=== PATIENT | female | born 1970 | race Caucasian/White ===

== ENCOUNTER 2019-08-26 23:50 | Emergency (ER) | payer OTHER, SELFPAY ==
[~2019-08-26] VITALS: Ht 167.6 cm; Wt 53.2 kg
[2019-08-26 23:51] VITALS: BP 148/96
[2019-08-27 00:56] LABS: BASO # 0.1 10^3/uL (0.0-0.2); BASO % 0.7 % (0.0-1.0); EOS # 0.1 10^3/uL (0.0-0.5); EOS % 1.3 % (0.0-3.0); HEMATOCRIT 39.6 % (36.0-47.0); HEMOGLOBIN 12.1 g/dl (12.0-15.5); LYMPH # 1.8 10^3/uL (1.5-5.0); LYMPH % 18.6 % (24.0-44.0); MEAN CORPUSCULAR HEMOGLOBIN 24.9 pg (27.0-33.0); MEAN CORPUSCULAR HGB CONC 30.6 g/dl (32.0-36.5); MEAN CORPUSCULAR VOLUME 81.6 fl (80.0-96.0); MONO % 9.9 % (0.0-5.0); NEUTROPHILS # 6.8 10^3/uL (1.5-8.5); NEUTROPHILS % 69.2 % (36.0-66.0); PLATELET COUNT, AUTOMATED 304 10^3/uL (150-450); RED BLOOD COUNT 4.85 10^6/uL (4.00-5.40); WHITE BLOOD COUNT 9.8 10^3/uL (4.0-10.0)
[2019-08-27 01:22] LABS: ALBUMIN 3.8 GM/DL (3.2-5.2); ALT/SGPT 51 U/L (12-78); BILIRUBIN,DIRECT 0.2 MG/DL (0.0-0.2); BILIRUBIN,TOTAL 0.8 MG/DL (0.2-1.0); BLOOD UREA NITROGEN 10 MG/DL (7-18); CALCIUM LEVEL 9.2 MG/DL (8.5-10.1); CARBON DIOXIDE LEVEL 30 MEQ/L (21-32); CHLORIDE LEVEL 101 MEQ/L (98-107); CREATININE FOR GFR 0.72 MG/DL (0.55-1.30); GLOMERULAR FILTRATION RATE > 60.0 (>58); GLUCOSE, FASTING 84 MG/DL (70-100); LIPASE 98 U/L (73-393); POTASSIUM SERUM 3.7 MEQ/L (3.5-5.1); SODIUM LEVEL 139 MEQ/L (136-145); TOTAL PROTEIN 7.1 GM/DL (6.4-8.2)
== END 2019-08-27 03:05 | disposition left against medical advice (07) ==
LOC: M ED 23:50
DX: Z53.29 Procedure and treatment not carried out because of patient's decision for other reasons (principal)

== ENCOUNTER 2020-10-24 11:10 | Emergency (ER) | payer OTHER, SELFPAY ==
[~2020-10-24] VITALS: Ht 167.6 cm; Wt 56.8 kg
[2020-10-24 11:14] VITALS: BP 145/65
--- OUTSIDE RECORDS SUMMARY | 2020-10-24 11:28 | CCD ---
Author Author [facility] Organization [facility] Address Unknown Phone Unavailable Care Team Providers Care Customer Contact Specialist Name Role Phone José Miguel ROMERO MD Unavailable Unavailable José Miguel ROMERO MD Unavailable Unavailable José Miguel ROMERO MD Unavailable Unavailable José Miguel ROMERO MD Unavailable Unavailable José Miguel ROMERO MD Unavailable Unavailable José Miguel ROMERO MD Unavailable Unavailable José Miguel ROMERO MD Unavailable Unavailable José Miguel ROMERO MD Unavailable Unavailable José Miguel ROMERO MD Unavailable Unavailable José Miguel ROMERO MD Unavailable Unavailable José Miguel ROMERO MD Unavailable Unavailable José Miguel ROMERO MD Unavailable Unavailable José Miguel ROMERO MD Unavailable Unavailable TURRIN, CORY Unavailable Unavailable TURRIN, CORY Unavailable Unavailable TURRIN, CORY Unavailable Unavailable TURRIN, CORY Unavailable Unavailable Frank, M María PA-C Unavailable Unavailable Frank, M María PA-C Unavailable Unavailable Frank, M María PA-C Unavailable Unavailable Frank, M María PA-C Unavailable Unavailable Frank, M María PA-C Unavailable Unavailable Frank, M María PA-C Unavailable Unavailable Frank, M María PA-C Unavailable Unavailable Frank, M María PA-C Unavailable Unavailable Frank, M María PA-C Unavailable Unavailable Frank, M María PA-C Unavailable Unavailable Frank, M María PA-C Unavailable Unavailable Frank, M María PA-C Unavailable Unavailable Frank, M María PA-C Unavailable Unavailable Frank, M María PA-C Unavailable Unavailable Frank, M María PA-C Unavailable Unavailable Frank, M María PA-C Unavailable Unavailable Farnk, M María PA-C Unavailable Unavailable Frank, M María PA-C Unavailable Unavailable Frank, M María PA-C Unavailable Unavailable Frank, M María PA-C Unavailable Unavailable Frank, M María PA-C Unavailable Unavailable Frank, M María PA-C Unavailable Unavailable Frank, M María PA-C Unavailable Unavailable Frank, M María PA-C Unavailable Unavailable Frank, M María PA-C Unavailable Unavailable Frank, M María PA-C Unavailable Unavailable Frank, M María PA-C Unavailable Unavailable Frank, M María PA-C Unavailable Unavailable Frank, M María PA-C Unavailable Unavailable Frank, M María PA-C Unavailable Unavailable Frank, M María PA-C Unavailable Unavailable Frank, M María PA-C Unavailable Unavailable Frank, M María PA-C Unavailable Unavailable NO, PCP Unavailable Unavailable Re-disclosure Warning The records that you are about to access may contain information from federally-assisted alcohol or drug abuse programs. If such information is present, then the following federally mandated warning applies: This information has been disclosed to you from records protected by federal confidentiality rules (42 CFR part 2). The federal rules prohibit you from making any further disclosure of this information unless further disclosure is expressly permitted by the written consent of the person to whom it pertains or as otherwise permitted by 42 CFR part 2. A general authorization for the release of medical or other information is NOT sufficient for this purpose. The Federal rules restrict any use of the information to criminally investigate or prosecute any alcohol or drug abuse patient.The records that you are about to access may contain highly sensitive health information, the redisclosure of which is protected by Article 27-F of the [facility] Public Health law. If you continue you may have access to information: Regarding HIV / AIDS; Provided by facilities licensed or operated by the [facility] Office of Mental Health; or Provided by the [facility] Office for People With Developmental Disabilities. If such information is present, then the following [facility] mandated warning applies: This information has been disclosed to you from confidential records which are protected by state law. State law prohibits you from making any further disclosure of this information without the specific written consent of the person to whom it pertains, or as otherwise permitted by law. Any unauthorized further disclosure in violation of state law may result in a fine or correction sentence or both. A general authorization for the release of medical or other information is NOT sufficient authorization for further disc losure. Allergies and Adverse Reactions Type Description Substance Reaction Status Data Source(s ) BRANDNAME PENICILLIN PENICILLIN [facility] Food allergy SOY SOY [facility] Encounters Encounter Providers Location Date Indications Data Source(s ) Outpatient Attender: SALAZAR ROMERO MDConsultant: María troncoso PA-C 03/05/2020 11:35:44 AM EDT - 03/06/2020 08:34:00 AM [facility] Patient discharged. Outpatient Attender: SALAZAR MERINOonsultant: PCP NO 03/03/2020 01:27:18 PM EDT - 03/08/2020 08:00:00 AM [facility] Patient discharged. Outpatient Attender: SALAZAR MERINOonsultant: PCP NO 11/15/2019 09:03:00 AM EST - 11/15/2019 09:03:00 AM [facility] l Outpatient Attender: SALAZAR MERINOonsultant: PCP NO 09/11/2019 01:39:00 PM EST - 09/11/2019 01:39:00 PM [facility] l Outpatient Attender: SALAZAR ROMERO MDAttender: GENTRY HODGEConsultant: PCP NO 08/27/2019 04:11:00 PM EST - 08/30/2019 12:45:00 PM [facility] Patient discharged. Medications Medication Brand Name Start Date Product Form Dose Route Admi nistrative Instructions Pharmacy Instructions Status Indications Reaction Description Data Source(s) 40 mg 08/30/2019 12:00:00 AM EST capsule,delayed release (DR/EC) 60 TAKE ONE CAPSULE BY MOUTH TWICE A DAY TAKE ONE CAPSULE BY MOUTH TWICE A DAY SOLD: 11/21/2019 [facility] 40 mg 08/30/2019 12:00:00 AM EST capsule,delayed release (DR/EC) 60 TAKE ONE CAPSULE BY MOUTH TWICE A DAY TAKE ONE CAPSULE BY MOUTH TWICE A DAY SOLD: 08/30/2019 [facility] Insurance Providers Payer name Policy type / Coverage type Policy ID Covered alliance party ID Covered alliance party's relationship to cronin Policy Cronin Plan Information SELF PAY ONLY [id number] SP [id number] [employer] COMMUNITY PLAN XIX [id number] MEDICAID -O/[id number] MEDICAID [facility] [id number] [id number] [facility] COMMUNTY PLAN [id number] UNHC COMMUNITY PLAN MCDHMO [id number] SP [id number] HMO BLUE [id number] SP [id number] [employer] BCBS P [id number] S [id number] [employer] P [id number] S [id number] Problems, Conditions, and Diagnoses Code Display Name Description Problem Type Effective Dates Data Source(s) R99 Ill-defined and unknown cause of mortali ty Ill-defined and unknown cause of mortality Diagnosis 03/08/2020 08:00:00 AM EDT [facility] K8020 Calculus of gallbladder without cholecys titis without obstruction Calculus of gallbladder without cholecystitis without obstruction Diagnosis 11/15/2019 09:03:00 AM [facility] K257 Chronic gastric ulcer without hemorrhage or perforation Chronic gastric ulcer without hemorrhage or perforation Diagnosis 11/15/2019 09:03:00 AM [facility] K3189 Other diseases of stomach and duodenum O ther diseases of stomach and duodenum Diagnosis 09/11/2019 01:39:00 PM [facility] K2950 Unspecified chronic gastritis without bl eeding Unspecified chronic gastritis without bleeding Diagnosis 08/27/2019 04:11:00 PM [facility] A048 Other specified bacterial intestinal inf ections Other specified bacterial intestinal infections Diagnosis 08/27/2019 04:11:00 PM [facility] E46 Unspecified protein-calorie malnutrition Unspecified protein-calorie malnutrition Diagnosis 08/27/2019 04:11:00 PM [facility] S35682 Nicotine dependence, cigarettes, uncompl icated Nicotine dependence, cigarettes, uncomplicated Diagnosis 08/27/2019 04:11:00 PM [facility] 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 Adult hypert rophic pyloric stenosis Diagnosis 08/27/2019 04:11:00 PM [facility] K279 Peptic ulcer, site unspecifi ed, unspecified as acute or chronic, without hemorrhage or perforation Peptic ulcer, site unspecified, unspecif ied as acute or chronic, without hemorrhage or perforation Diagnosis 08/27/20 04:11:00 PM [facility] Results ID Date Data Source [id number] 08/27/2019 04:11:00 PM [facility] 1 OrderSheet [facility] Emergency Department [address] [place] [address] Phone #: ext- [phone] 08/27/2019 15:57 Patient: JOVI ADDISON Sex: F : 1970 Age: 49yWEIGHT:53.0 kg (S) HEIGHT:66 inches (S) BMI:18.9ALLERGIES: Penicillins, SoyCHIEF COMPLAINT: abdominal painDIAGNOSIS: CholecystitisLAB ORDERSOrder Description Priority Entered Acknowledged InitialedCBC w Diff STAT 17:38 08/27/2019 17:39 Cory Colon RN, M.D.;CMP STAT 17:38 08/27/2019 17:39 Cory Colon RN, M.D.;Lipase STAT 17:38 08/27/2019 17:39 Cory Colon RN, M.D.;Urinalysis (Clean STAT 17:38 08/27/2019 Ack'd: 19:10 20:29 Omi Vergara) Cory oHdge Jennifer R.N. M.D.; Maris EnglandTSH STAT 17:46 08/27/2019 18:03 Cory Colon RN, M.D.;DIAGNOSTIC STUDY ORDERSOrder Description Priority Entered Acknowledged InitialedCT Abd PE L W/ IV STAT 17:39 08/27/2019 18:03 DorisContrast Only Cory Hodge RN(Oxygen?(No)) Emerald;(IV?(Yes)) Reason for Study: epigastric, ruq pain x 1 month w 15 lbs wt lossUS Gall Bladder STAT 18:52 08/27/2019 Ack'd: 19:10 19:16 Madhuri(Oxygen?(No)) Cory Hodge Hagenston RN M.D.; Maris England Reason for Study: Nausea w Vomiting, RUQ PainMEDICATION/IV/DRIP/FLUID ORDERS 2 OrderSheet [facility] Emergency Department [address] [place] [address] Phone #: ext- [phone] 08/27/2019 15:57 Patient: JOVI ADDISON Sex: F : 1970 Age: 49yOrder Description Priority Entered Acknowledged InitialedNS IV 1000 mL 17:38 08/27/2019 18:02 DorisBolus: : Bolus 1000 Cory Hodge RNmL (X1) MEstuardoDEstuardo;Zofran 4 mg IVP X 1 17:38 08/27/2019 18:00 Dorisdose: 4 mg (NOW Cory Hodge RNx1) MRaissa;Zantac IVPB 50 mg 17:38 08/27/2019 18:0 3 Doriswith Dextrose Cory Hodge RNIntravenous 50 mL M.DEstuardo;(D5W)Zofran 4 mg IVP X 1 22:24 08/27/2019 Ack'd: 22:44 22:50 Jai,dose: 4 mg (NOW Cory Hodge Jennifer R.N.x1) Emerald; Maris EnglandcefOXitin 23:52 08/27/2019 Ack'd: 23:57 00:29 08/28/2019(2gm/100mL) IVPB Cory Hodge McCormick,2000 mg with Emerald; Maris Pollock R.N.DextroseIntravenous 100 mL(D5W) Reason for ordering with alerts: Benefits outweigh risks -- 23:52 08/27/2019 Cory Hodge M.D.LR IV : 150 mL/hr 23:55 08/27/2019 Ack'd: 23:57 01:49 08/28/2019 Cory Hodge McCormick, M.D.; Maris Pollock R.N.HYDROmorphone 23:55 08/27/2019 Ack'd: 23:57 00:28 08/28/2019IVP 1 mg (Cory Yee McCormick, ALERT M.D.; Maris Pollock R.N.MEDICATION)HYDROmorphone 01:54 08/28/2019 Ack'd: 01:54 01:55 JaiIVP 1 mg (Maris Albarado Jennifer R.N.ALERT R.NEstuardo; Verbal order Maris EnglandMEDICATION) per; Cory Hodge M.D.GENERAL ORDERSOrder Description Priority Entered Acknowledged InitialedNPO 17:38 08/27/2019 18:03 Cory Colon RN, M.D.;Saline Lock 17:38 08/27/2019 18:03 Madhuri 3 OrderSheet [facility] Emergency Department [address] [place] [address] Phone #: ext- [phone] 08/27/2019 15:57 [id number] Sex[facility] F : 1970 Age: 49y Cory Hodge RN, M.D.;Consult - General 23:55 08/27/2019 Ack'd: 23:57 23:57 Vergara,Cory Goyal Jennifer R.N. M.D.; Maris England[Electronically signed by Maris Vergara R.N. (02: 019)][Electronically signed by Cory Hodge M.D. (02:12 08/28/2019)][Electronically locked by Maris Vergara R.N. (02:08/28/2019)] Name Value Range Interpretation Code Description Data Rachel rce(s) Supporting Document(s) ID Date Data Source [id number] 08/27/2019 04:11:00 PM EST [facility] 1 Medication Reconciliation Report [facility] Emergency Department [address] [place] [address] Phone #: ext- [phone] 08/27/2019 15:57 Patient: JOVI ADDISON Sex: F : 1970 Age: 49yWeight: 53.0 kgHeight/Length: 66 in.BMI: 18.9ALLERGIES: Penicillins, SoyThe patient's Home Medications are listed below:NONE.The source(s) of the original Home Medication information:patientThe following Medications were given to the patient in the Emergency Department:Zofran [IVP] IVP 4 mg, administered: 08/27/2019 5:53:00 PMIV NS w/ bolus IV Fluids bolus 1000 mL over 1 hour(s), then 1000 mL/hr, administered: 08/27/2019 5:54:00PMZantac [IVPB] IVPB bolus 0, then 50 mg 100 mL/hr, administered: 08/27/2019 5:55:00 PMZofran [IVP] IVP 4 mg, administered: 08/27/2019 10:45:00 PMHydromorphone [IVP] IVP 1 mg, administered: 08/28/2019 12:05:00 AMCEFOXITIN (2GM/100ML) [IVPB] IVPB bolus 0, then 2 gm 100 mL/hr, administered: 08/28/2019 12:08:00AMLR [IV] IV Fluids bolus 0, then 150 mL/hr, administered: 08/28/2019 1:49:00 AMHydromorphone [IVP] IVP 1 mg, administered: 08/28/2019 1:51:00 AMThe following Medications were prescribed to the patient:None. Name Value Range Interpretation Code Description Data Rachel rce(s) Supporting Document(s) ID Date Data Source [id number] 08/27/2019 04:11:00 PM EST [facility] 1 Medication Administration Record [facility] Emergency Department [address] [place] [address] Phone #: ext- [phone] 08/27/2019 15:57 Patient: JOVI ADDISON Sex: F : 1970 Age: 49yWeight: 53.0 kgHeight/Length: 66 inBMI: 18.9ALLERGIES: Soy, Penicillins Date/Time Medication Administered Medication OrderedStart IV NS W/ BOLUS NS IV 1000 mL Bolus: : Bolus 390935:[id number] 08/27/2019 Dose: IV Fluids mL (X1)Madhuri Caballero RN Rate: 1000 mL/hr over 1 hour(s)---- Bolus: 1000 mL over 1 hour(s)Stop Dispensed: 1000 mL bag19:15 08/27/2019 Site: #1 left forearmMaris Vergara R.N.Given ZOFRAN [IVP] (ONDANSETRON HCL) Zofran 4 mg IVP X 1 dose: 4 mg17:53 08/27/2019 Dose: 4 mg IVP (NOW x1)Madhuri Caballero RN Site: #1 left forearmStart ZANTAC [IVPB] (RANITIDINE HCL IN Zantac IVPB 50 mg with Dydmjszh61:55 08/27/2019 NACL) Intravenous 50 mL (D5W)Madhuri Caballero RN Dose: 50 mg IVPB---- Rate: 100 mL/hr over 30 minute(s)Stop Dispensed: 50 mL bag18:25 08/27/2019 Site: #1 left fo rearmDoris OSEAS CaballeroGiven ZOFRAN [IVP] (ONDANSETRON HCL) Zofran 4 mg IVP X 1 dose: 4 mg22:45 08/27/2019 Dose: 4 mg IVP (NOW x1)Maris Vergara R.N. Site: #1 left forearmStart CEFOXITIN (2GM/100ML) [IVPB] cefOXitin (2gm/100mL) IVPB [id number]:08 08/28/2019 (CEFOXITIN SODIUM) mg with Dextrose Intravenous 100Maris Gonzalez R.N. Dose: 2 gm IVPB mL (D5W)---- Rate: 100 mL/hrStop Dispensed: 100 mL bag01:48 08/28/2019 Site: #1 left forearmMaris Gonzalez R.N.Start LR [IV] LR IV : 150 mL/hr01:49 08/28/2019 Dose: IV FluidsMaris Vergara R.N. Rate: 150 mL/hr---- Dispensed: 1000 mL bagContinued Upon Admission Site: #1 left nejkkmi59:07 08/28/2019 Maris Gonzalez R.N.Given HYDROMORPHONE [IVP] HYDROmorphone IVP 1 mg (HIGH00:05 08/28/2019 Dose: 1 mg IVP ALERT MEDICATION)Maris Vergara R.N. Site: #1 left forearmGiven HYDROMORPHONE [IVP] HYDROmorphone IVP 1 mg (HIGH01:51 08/28/2019 Dose: 1 mg IVP ALERT MEDICATION)Maris Vergara R.N. Site: #1 left forearm Name Value Range Interpretation Code Description Data Rachel rce(s) Supporting Document(s) ID Date Data Source [id number] 08/27/2019 04:11:00 PM EST [facility] 1 General Instructions [facility] Emergency Department [address] [place] [address] Phone #: fvs- [phone] 08/27/2019 15:57 Patient: JOVI ADDISON Sex: F : 1970 Age: 49yAcute cholecystitis with cholelithiasis. No obstruction, choledocholithiasis or pancreatitis.(Electronically signed by Cory Hodge M.D. 08/28/2019 02:12) Name Value Range Interpretation Code Description Data Rachel rce(s) Supporting Document(s) ID Date Data Source [id number] 08/27/2019 04:11:00 PM EST [facility] 1 Clinical Report - Nurses [facility] Emergency Department [address] [place] [address] Phone #: ext- [phone] 08/27/2019 15:57 Patient: JOVI ADDISON Sex: F : 1970 Age: 49yTRIAGEArrived by private vehicle. Historian: patient. Accompanied by spouse.Triage time: 16:00 08/27/2019. Acuity: LEVEL 3.Chief Complaint: ABDOMINAL PAIN and VOMITING.Alert. No acute distress.Onset. (1 month ago). ( Pt states she has been losing a lot of weight for the past 8-10 months, this hasbeen waxing and waning. Pt states over the past month she has been having abd pain and vomiting. Ptwent to [facility] night but left AMA due to overcrowding.). The patient has had nausea and abdominalpain. The pain is described as located in the epigastrium and central area of the abdomen. The patienthas had vomiting (twice today).Treatment LINE HAUL DRIVER:None.SEPSIS SCREEN: NEGATIVE. Negative (no infection suspected/documented). (16:05 08/27/2019).--16:05 08/27/19 Maris Brewer R.N.16:00 08/27/19. BP: 143/95. HR: 88. RR: 18. O2 saturation: 97%. Temp: 97.8 F. --16:05 08/27/19Maris Brewer R.N.16:05 08/27/19. Pain level now: 06/21. --16:05 08/27/19 Maris Brewer R.N.Weight: 53 kg stated. Height/Length: 66 inches Per Patient. BMI: 18.9. --16:00 08/27/19 Maris Brewer R.N.MedicationsNone. --16:03 08/27/19 Maris Brewer R.N.AllergiesPenicillins.(hives) --16:03 08/27/19 Maris Brewer R.N.Soy. --16:03 08/27/19 Maris Brewer R.N.PROBLEMS:no known problems.Medication/allergy information source: the patient. --16:05 08/27/19 Maris Brewer R.N.ADDITIONAL SURGERIES: (X2). --16:04 08/27/19 Maris Brewer R.N. 2 Clinical Report - Nurses [facility] Emergency Department [address] [place] [address] Phone #: ext- [phone] 08/27/2019 15:57 Patient: JOVI ADDISON Sex: F : 1970 Age: 49y History PAST MEDICAL HX: Immunizations: up-to-date. Last normal menstrual period was 1 week ago. SOCIAL HX: Current every day heavy tobacco smoker (cigarette)- less than 1 pack per day. No alcohol use or drug use. No recent travel. No known contact with a sick individual. The patient was offered HIV candido ting but declined. Patient education was provided. The patient was offered hepatitis C testing but declined. Patient education was provided. The patient has not traveled outside the [place] Infectious disease exposure: No infectious disease exposure. Patient is not a known carrier of tuberculosis, hepatitis, HIV, MRSA or VRE. Patient is not a known carrier of CRE. SELF HARM ASSESSMENT: Self harm assessment was performed. The patient answered "no" to the question(s) "Have you recently felt down, depressed, or hopeless?", "Do you have thoughts of harming or killing yourself?", "Do you have a plan for harming or killing yourself?", "Have you recently had thoughts about harming or killing others?", "Do you have any dangerous items in your possession?", "Have you noticed less interest or pleasure in doing things?", "Are you here because you tried to hurt yourself?" and "Have you ever tried to hurt yourself before today?". ABUSE ASSESSMENT: No report of abuse. NUTRITIONAL RISK ASSESSMENT: The nutritional risk assessment revealed no deficiencies. FUNCTIONAL ASSESSMENT: Functional assessment: no impairments noted. LEARNING NEEDS ASSESSMENT: The learning needs assessment revealed no barriers. FALL RISK ASSESSMENT: Fall risk assessment completed. No risk factors identified. SKIN INTEGRITY ASSESSMENT: Skin integrity risk assessment completed. No skin integrity risk identified. --16:05 08/27/19 Maris Brewer R.N. Interventions Identification band on patient. --16:05 08/27/19 Maris Brewer R.N. To treatment room. --17:31 08/27/19 Maris Brewer R.N.PHYSICAL VDCGAYVUNQ40:42 08/27/19. Ambulatory to room.GENERAL / NEURO / PSYCH: Alert. Oriented X 4. Appears in no acute distress.HEENT: Mucous membranes are pink.RESPIRATORY: Respirations not labored.GI / : Abdomen soft. Abdominal tenderness in the upper abdomen. Bowel sounds within normallimits.SKIN: Skin is warm and dry. --19:19 12/16/19 Madhuri Caballero RN. 3 Clinical Report - Nurses [facility] Emergency Department [address] [place] [address] Phone #: ext- [phone] 08/27/2019 15:57 Patient: JOVI ADDISON Sex: F : 1970 Age: 49yNURSING PROGRESS NOTESThe patient is calm and resting quietly. --17:18 08/27/19 Maris Brewer R.N. 17:42 08/27/19. Two patient identifiers checked. Bed placed in lowest position. Brakes of bed on. Patient ready for evaluation- ED physician notified. --:08/27/19 Madhuri Caballero RN 17:53 08/27/2019 Site #1 started via IV in the left forearm with an 20g angiocath, with aseptic technique and good blood return; one attempt. Saline lock flushed with 10 mL saline. --18:00 08/27/19 Madhuri Caballero RN 17:53 08/27/2019 Zofran (Ondansetron HCl) IVP 4 mg given over 1 minute(s) via site #1. Allergies verified and confirmed 5 rights. IV patency established. IV site checked: no pain, redness, or swelling. IV flushed thoroughly pre- and post-medication administration. IVP given by RN. Information reviewed with patient including reason for taking this medication, signs of allergic reaction and precautions. Verbalizes understanding. --18:00 08/27/19 Madhuri Caballero RN 17:54 08/27/2019 Started bag #1 1000 mL IV Fluids IV NS w/ bolus; bolus of 1000 mL over 1 hour(s) then at 1000 mL/hr over 1 hour(s) via site #1 via IV pump. Allergies verified and confirmed 5 rights. IV patency established. IV site checked: no pain, redness, or swelling. IV flushed thoroughly pre- and post-medication administration. Information reviewed with patient including reason for taking this medication, signs of allergic reaction and precautions. Verbalizes understanding. Completed per protocol. --18:02 08/27/19 Madhuri Caballero RN 17:55 08/27/2019 Started 50 mg of Zantac (raNITIdine HCl in NaCl) IVPB in bag #1 50 mL; at 100 mL/hr over 30 minute(s) via site #1. via IV pump. Allergies verified and confirmed 5 rights. IV patency established. IV site checked: no pain, redness, or swelling. IV flushed thoroughly pre- and post-medication administration. Information reviewed with patient including reason for taking this medication, signs of allergic reaction and precautions. Verbalizes understanding. Completed per protocol. --18:03 08/27/19 Madhuri Caballero RN 18:08 08/27/2019 Zofran IVP Response: no adverse reaction symptoms have improved the patient feels better. --19:17 08/27/19 Madhuri Caballero RN 18:15 08/27/19. Reassessment after medication administered. Pain still present but improving. Nausea gone now. Reassessment after fluids administered. She is calm and resting quietly. --19:21 08/27/19 Madhuri Caballero RN 18:25 08/27/2019 Zantac IVPB via IV site #1 Discontinued: completed. Total amount infused: 50 mL. --19:17 08/27/19 Madhuri Caballero RN 18:28 08/27/19. Patient transported to CT by wheelchair with data entry technician. --19:22 08/27/19 Madhuri Caballero RN 18:37 08/27/19. Patient returned from CT by wheelchair with data entry technician. --19:22 08/27/19 4 Clinical Report - Nurses [facility] Emergency Department [address] [place] [address] Phone #: ext- [phone] 08/27/2019 15:57 Patient: JOVI ADDISON Sex: F : 1970 Age: 49yDoris OSEAS Caballero19:15 08/27/19. Care transferred and report given (Maris Vergara RN). --19:24 08/27/19 OSEAS Hussein19:27 08/27/19. BP: 142/81. MAP: 101. HR: 55. RR: 18. O2 saturation: 98% on room air. Temp: 97.3 F(oral). Pain level now: 04/21. --19:27 08/27/19 Maris Vergara R.N.20:29 08/27/19. Patient transported to sonogram by wheelchair with tech. --20:29 08/27/19 Maris Vergara R.N.21:15 08/27/19. Patient returned from sonogram by wheelchair with tech. --21:16 08/27/19 Maris Vergara R.N.The patient is calm and resting quietly. ( Pt sleeping intermittently.).GI / : The patient reports nausea is still present and worsening (MD AWARE). --22:23 08/27/19Maris Brewer R.N.22:23 08/27/19. BP: 141/82. MAP: 101. HR: 56. RR: 16. O2 saturation: 99% on room air. Temp: 98.5 F(tympanic). --22:23 08/27/19 Maris Brewer R.N.19:15 08/27/2019 IV Fluids IV NS w/ bolus via IV site #1 Discontinued: bag #1 infused. Total amountinfused: 1000 mL. IV patency est ablished. IV site checked: no pain, redness, or swelling. IV flushedthoroughly. --01:56 08/28/19 Maris Vergara R.N.22:45 08/27/2019 Zofran (Ondansetron HCl) IVP 4 mg given over 2 minute(s) via site #1. Allergies verifiedand confirmed 5 rights. IV patency established. IV site checked: no pain, redness, or swelling. IV flushedthoroughly pre- and post-medication administration. IVP given by RN. Information reviewed with patientincluding reason for taking this medication, signs of allergic reaction and precautions. Verbalizesunderstanding. --22:50 08/27/19 Maris Vergara R.N.22:50 08/27/19. Reassurance given to the patient. The patient is calm and resting quietly. --22: Maris Vergara R.N.00:05 08/28/2019 Hydromorphone IVP 1 mg given over 2 minute(s) via site #1. Allergies verified andconfirmed 5 rights. IV patency established. IV site checked: no pain, redness, or swelling. IV flushedthoroughly pre- and post-medication administration. IVP given by RN. Information reviewed with patientincluding reason for taking this medication, signs of allergic reaction, precautions and sedative warning.Verbalizes understanding. --00:28 08/28/19 Maris Vergara R.N.00:08 08/28/2019 Started 2 gm of CEFOXITIN (2GM/100ML) (cefOXitin Sodium) IVPB in bag #1 100 mL;at 100 mL/hr via site #1. via IV pump. Allergies verified and confirmed 5 rights. IV patency established. IVsite checke d: no pain, redness, or swelling. IV flushed thoroughly pre- and post-medication administration.Information reviewed with patient including reason for taking this medication, signs of allergic reaction and 5 Clinical Report - Nurses [facility] Emergency Department [address] [place] [address] Phone #: ext- [phone] 08/27/2019 15:57 Patient: JOVI ADDISON Sex: F : 1970 Age: 49y precautions. Verbalizes understanding. --00:29 08/28/19 Maris Vergara R.N. 00:18 08/28/19. Reassurance given to the patient. The patient is calm and resting quietly. Two patient identifiers checked. Patient ID band checked for patient name and birthdate: patient confirmed. Side rails up x 1. Bed placed in lowest position. Brakes of bed on. --00:30 08/28/19 Maris Vergara R.N. 01:00 08/28/19. The patient is resting quietly. Call light placed in reach of patient. Side rails up x 1. Bed placed in lowest position. Brakes of bed on. --01:57 08/28/19 Maris Vergara R.N. 01:45 08/28/19. BP: 143/74. MAP: 97. HR: 57. RR: 18. O2 saturation: 98% on room air. Temp: 97.2 F (oral). Pain level now: 04/21. --01:59 08/28/19 Maris Vergara R.NEstuardo 01:45 08/28/19. GI / : The patient reports abdominal pain is still present and worsening (04/21 provider made aware, new orders rec'd). --01:59 08/28/19 Maris Vergara R.N. 01:48 08/28/2019 CEFOXITIN (2GM/100ML) IVPB via IV site #1 Discontinued: bag #1 infused. Total amount infused: 120 mL. IV patency established. IV site checked: no pain, redness, or swelling. IV flushed thoroughly. --01:48 08/28/19 Maris Vergara R.N. 01:49 08/28/2019 Started bag #1 1000 mL IV Fluids LR; at 150 mL/hr via site #1 via IV pump. Allergies verified and confirmed 5 rights. IV patency established. IV site checked: no pain, redness, or swelling. IV flushed thoroughly pre- and post-medication administration. Information reviewed with patient including reason for taking this medication, signs of allergic reaction and precautions. Verbalizes understanding. --01:49 08/28/19 Maris Vergara R.N. 01:51 08/28/2019 Hydromorphone IVP 1 mg given over 2 minute(s) via site #1. Allergies verified and confirmed 5 rights. IV patency established. IV site checked: no pain, redness, or swelling. IV flushed thoroughly pre- and post-medication administration. IVP given by RN. Information reviewed with patient including reason for taking this medication, signs of allergic reaction, precautions and sedative warning. Verbalizes understanding. --01:55 08/28/19 Marsi Vergara R.N. 02:07 08/28/2019 Site #[address] upon admission; patent, no pain and no signs of infection or infiltration. --02:08 08/28/19 Maris Vergara R.N. 02:08/28/2019 IV Fluids LR via IV site #1 Continued: upon admission at the rate of 150 mL/hr. 950 mL remaining bag #1. IV patency established. IV site checked: no pain, redness, or swelling. IV flushed thoroughly. --02:08 08/28/19 Maris Vergara R.N.DISPOSITION / DISCHARGE 02:01 08/28/19. Report was given to a nurse via a phone call. Report included patient's care, condition, vital signs, labs, medications and IV's. All questions were answered. Report was acknowledged and care was transferred. (Nikky FAROOQ). --02:06 08/28/19 Maris Vergara R.N. 6 Clinical Report - Nurses [facility] Emergency Department [address] [place] [address] Phone #: ext- [phone] 08/27/2019 15:57 Patient: JOVI ADDISON Sex: F : 1970 Age: 49y 02:07 08/28/19. Departure time: 02:07 08/28/2019. Admitted to the Acute Inpatient Unit. Transported via stretcher by nurse with IV. Patient's personal items; items were transported with the patient. --02:07 08/28/19 Maris Vergara R.N. 01:45 08/28/19. BP: 143/74. MAP: 97. HR: 57. RR: 18. O2 saturation: 98% on room air. Temp: 97.2 F (oral). Pain level now: 04/21. --02:07 08/28/19 Maris Vergara R.N.Locked/Released at 08/28/2019 02:08 by Maris Vergara R.N. Name Value Range Interpretation Code Description Data Rachel rce(s) Supporting Document(s) ID Date Data Source [id number] 0001 08/27/2019 04:11:00 PM [facility] 1 Clinical Report - Physicians/Mid Levels [facility] Emergency Department [address] [place] [address] Phone #: ext- [phone] 08/27/2019 15:57 [id number] Sex[facility] F : 1970 Age: 49y Time Seen: 17:32 08/27/2019; initial patient contact. Arrived- By private vehicle. Historian- patient. Disposition decision: 23:53 08/27/2019.HISTORY OF PRESENT ILLNESS Chief Complaint: ABDOMINAL PAIN. This started 8 months ago, mild, getting worse in last month and is still present and worsening. (in last month). It has been constant. It is described as "pain" and it is described as located in the right upper quadrant and epigastric area. At its maximum, severity described as severe. When seen in the E.D., severity described as moderate. Modifying factors- worsened by food. Not relieved by anything. The patient has had nausea and loss of appetite. She has had vomiting (daily). She has had diarrhea (daily). Similar symptoms previously. None. Recent medical care: Not recently seen/assessed.REVIEW OF SYSTEMSNo constipation, alexandrea ck stools, hematemesis, difficulty with urination or pain with urination. No urinaryfrequency, bloody stools, fever, headache or sore throat. No blurred vision, chest pain, difficulty breathing,cough or joint pain. No skin rash, chills or back pain. The patient has not had weight loss. weight lossof 15 lbs /2 weeks. All other systems reviewed and are negative.PAST HISTORYSee nurses notes. Problems: no known problems. Additional Surgeries: . Medications: None. Allergies: Penicillins.(hives) Soy.SOCIAL HISTORYHeavy tobacco smoker- less than 1 pack per day. No alcohol use or drug use.ADDITIONAL NOTESThe nursing notes have been reviewed with agreement regarding the chief complaint, HPI, ROS, PMH and 2 Clinical Report - Physicians/Mid Levels [facility] Emergency Department [address] [place] [address] Phone #: ext- [phone] 08/27/2019 15:57 Patient: JOVI ADDISON Sex: F : 1970 Age: 49y patient medications and allergies.PHYSICAL EXAMVital Signs: 08/27/2019 16:05 Pain level now: 06/21.08/27/2019 16:00 BP: 143/95. MAP: 111. HR: 88. RR: 18. O2 saturation: 97%. Temp: 97.8 F. Have beenreviewed. Oxygen saturation normal.Appearance: Alert. Oriented X3. Patient in mild distress. Distress appears due to pain. (looks like shelost weight).Eyes: Pupils equal, round and reactive to light. Eyes normal inspection.ENT: Ears normal. Nose normal. Pharynx normal.Neck: Normal inspection. Neck supple.CVS: Normal heart rate and rhythm. Heart sounds normal. Pulses normal.Respiratory: No respiratory distress. Painless inspiration. Breath sounds normal. Chest nontender.Abdomen: Soft. Severe tenderness in the right upper quadrant and epigastric area with guardingp resent. Positive Smith's sign. No rebound tenderness. No organomegaly. No mass. Femoral pulsesequal.Back: Normal inspection.Skin: Skin warm and dry. Normal skin color. No rash. Normal skin turgor.Extremities: Extremities exhibit normal ROM. No lower extremity edema.Neuro: Oriented X 3. No motor deficit. No sensory deficit. Reflexes normal.LABS, X-RAYS, AND EKGAbdominal CT: REPORT SUBMISSION DATE: Aug 27, 2019 8:20:48 PM EST NAME: JOVI ADDISON STUDY INITIATED: Aug 27, 2019 6:13:15 PM EST STUDY RECEIVED: Aug 27, 2019 7:02:48 PM EST GENDER: F MODALITY TYPE: CT : 72 DESCRIPTION: CT ABD PELVIS W/ IV ONLY INSTITUTION: [facility] ORDERING PHYSICIAN: Cory Hodge PATIENT HISTORY: Epigastric, ruq pain x 1 month with 15 lb weight loss (Hx) / SAGITTAL (DICOM Hx) CT Abdomen/Pelvis History: Epigastric, ruq pain x 1 month with 15 lb weight loss (Hx) / SAGITTAL (DICOM Hx) Technique: CT ABD PELVIS W/ IV ONLY Dose length product (mGy-cm): Not provided 3 Clinical Report - Physicians/[facility] Emergency Department [address] [place] [address] Phone #: ext- [phone] 08/27/2019 15:57 Patient: JOVI ADDISON Sex: F : 1970 Age: 49yReformations: NoneContrast: With; Isovue 370 75 ml [id number] Exp 06/03Comparison:No comparison study provided.Findings:Moderate fluid distended stomach mild thickening of the pylorus. Advise correlation with symptoms andendoscopy if warranted to evaluate for possible gastroparesis, gastr itis/ulcer, mass or other etiologies.The appendix is partially visualized and visualized portions appear normal.Appendix tip not visualized and cannot be commented on.image 37 series 22.The large and small bowel loops appear normal.There is no evidence for bowel obstruction, inflammation or pneumatosis.There is a left sided 1.3 cm ovarian cyst. Consider ultrasound follow-up if warranted.Normal uterus and nonvisualized right ovary.Minimal free fluid in pelvis.Heterogeneous appearance of the fundus of the gallbladder likely represents gallstones less likely mass.Advise ultrasound follow-up.There are n ormal appearing liver, pancreas and bilateral adrenal glands.Normal spleen.Normal kidneysPartially decompressed bladder noted which limits evaluation. No distinct bladder stone identified.7 mm left renal cyst.Normal right kidney and bladder.ImpressionModerate fluid distended stomach mild thickening of the pylorus. Advise correlation with symptoms andendoscopy if warranted to evaluate for possible gastroparesis, gastritis/ulcer, mass or other etiologies.Heterogeneous appearance of the fundus of the gallbladder likely represents gallstones less likely mass.Advise ultrasound follow-up.Normal left renal cyst.There is a left sided 1.3 cm ovarian cyst. Consider ultrasound follow-up if warranted.Nonvisualized right ovary.Minimal free fluid in pelvis.Electronically signed on Aug 27, 2019 8:20:48 PM EST by:Landon Blum, [employer]. Abdominal CT performed with IV contrast. The study wasinterpreted by the radiologist. 4 Clinical Report - Physicians/Mid Levels [facility] Emergency Department [address] [place] [address] Phone #: ext- [phone] 08/27/2019 15:57 Patient: JOVI ADDISON Sex: F : 1970 Age: 49yAbdominal Sonogram: (REPORT SUBMISSION DATE: Aug 27, 2019 10:54:23 PM ESTNAME: JOVI ADDISON STUDY INITIATED:Aug 27, 2019 8:30:47 PM ESTMRN: [id number] STUDY RECEIVED:Aug 27, 2019 9:09:48 PM ESTGENDER: F MODALITY TYPE:US\\SRDOB: [birth year] DESCRIPTION: US GALLBLADDERINSTITUTION: [facility] ORDERING PHYSICIAN: Cory Frederick #: [id number] HISTORY:US RUQ (Gallbladder)History:US GALLBLADDER, RUQ PAIN, WITH VOMITING AND WEIGHT LOSS (Hx)Technique:US GALLBLADDERComparison:No comparison study available.Findings:Normal liver.Pancreas is suboptimally imaged.Wall echo shadow gallbladder complex.Gallbladder wall measures 3mmCommon biliary duct measures 2.9 mmNormal right kidney. No renal mass or hydronephrosis or calculi.Aorta in the visualized portions are grossly normal.IVC is patent.ImpressionMultiple gallstones obscuring posterior wall. Top normal gallbladder wall thickness.Electronically signed on Aug 27, 2019 10:54:23 PM EST by:Landon Blum, [place]). Study included the gallbladder. The study was interpreted bythe radiologist. 5 Clinical Report - Physicians/Mid Levels [facility] Emergency Department [address] [place] [address] Phone #: ext- [phone] 08/27/2019 15:57 Patient: JOVI ADDISON Sex: F : 1970 Age: 49yLaboratory Tests: Laboratory tests have been ordered, with results reviewed and considered in themedical decision making process.US Gall Bladder: (YA: 08/27/2019 18:52) ( MsgRcvd 08/27/2019 22:55) Final results [place] [address] ---------NAME--------- NUMBER SEX AGE ADMIT DISC. XRAY# F/C TYPE CYN Keller [id number] F 49 08/27/19879835 X6B E/R DATE OF : 1970 M/R# [id number] #: [id number] VT-14 LOCATION: EMERGENCY DEPT TRANSCRIBED: 08/27/19 22:54 IF US GALLBLADDER [id number] COMPLETED:08/27/19 22:04 ADB [id number] Reason(s): Nausea w Vomiting RUQ Pain PHYSICIAN: AYESHA DARRELL R A D I O L O G Y R E P O R T US RUQ (Gallbladder) History: US GALLBLADDER, RUQ PAIN, WITH VOMITING AND WEIGHT LOSS (Hx) Technique: US GALLBLADDER Comparison: No comparison study available. Findings: Normal liver. Pancreas is suboptimally imaged. Wall echo shadow gallbladder complex. Gallbladder wall measures 3mm Common biliary duct measures 2.9 mm Normal right kidney. No renal mass or hydronephrosis or calculi. Aorta in the visualized portions are grossly normal. IVC is patent. IMPRESSIONS: Multiple gallstones obscuring posterior wall. Top normal gallbladder wall thickness. Electronically Signed By: Aneclmo Hernandez M.D. , Radiologist Date/Time: 08/27/19 22:54TSH: (YA: 08/27/2019 17:40) ( MsgRcvd 08/27/2019 18:26) Final results Test Result Flag Units (Reference) TSH 0.91 uIU/mL (0.47 - 5.01)CT Abd PEL W/ IV Contrast Only: (YA: 08/27/2019 17:39) ( MsgRcvd 08/27/2019 20:21) Finalresults Exam CT ABD //T// PELVIS W/ [place] [address] ---------NAME--------- NUMBER SEX AGE ADMIT DISC. XRAY# F/C TYPE CYN Keller [id number] F 49 08/27/19 [id number] X6B E/R 6 Clinical Report - Physicians/Mid Levels [facility] Emergency Department [address] [place] [address] Phone #: ext- [phone] 08/27/2019 15:57 Patient: JOVI ADDISON Sex: F : 1970 Age: 49y DATE OF : 1970 M/R# [id number] #: [id number] VT-14 LOCATION: EMERGENCY DEPT TRANSCRIBED: 08/27/19 20:[address] ABD //T// PELVIS W/ IV ONLY [id number] COMPLETED:08/27/19 18:28 [facility] [address] Reason(s): epigastric, ruq pain x 1 month w 15 lbs wt loss PHYSICIAN: AYESHA RAMÍREZ == R A D I O L O G Y R E P O R T PATIENT HISTORY:SAGITTAL (DICOM Hx)CT Abdomen/PelvisHistory:Epigastric, ruq pain x 1 month with 15 lb weight loss (Hx) / SAGITTAL (DICOM Hx)Technique:CT ABD //T// PELVIS W/ IV ONLYDose length product (mGy-cm): Not providedReformations: NoneContrast: With; Isovue 370 75 ml [id number] Exp 06/03Comparison:No comparison study provided.Findings:Moderate fluid distended stomach mild thickening of the pylorus. Advisecorrelation with symptoms and endoscopy if warranted to evaluate for possiblegastroparesis, gastritis/ulcer, mass or other etiologies.The appendix is partially visualized and visualized portions appear normal.Appendix tip not visualized and cannot be commented on.image 37 series 22.The large and small bowel loops appear normal.There is no evidence for bowel obstruction, inflammation or pneumatosis.There is a left sided 1.3 cm ovarian cyst. Consider ultrasound follow-up ifwarranted.Normal uterus and nonvisualized right ovary.Minimal free fluid in pelvis.Heterogeneous appearance of the fundus of the gallbladder likely representsgallstones less likely mass. Advise ultrasound follow-up.There are normal appearing liver, pancreas and bilateral adrenal glands.Normal spleen.Normal kidneysPartially decompressed bladder noted which limits evaluation. No distinctbladder stone identified.7 mm left renal cyst.Normal right kidney and bladder.IMPRESSIONS:Moderate fluid distended stomach mild thickening of the pylorus. Advisecorrelation with symptoms and endoscopy if warranted to evaluate for possiblegastroparesis, gastritis/ulcer, mass or other etiologies.Heterogeneous appearance of the fundus of the gallbladder likely representsgallstones less likely mass. Advise ultrasound follow-up.Normal left renal cyst.There is a left sided 1.3 cm ovarian cyst. Consider ultrasound follow-up ifwarranted.Nonvisualized right ovary.Minimal free fluid in pelvis.While performing the above CT examination, radiation dose reduction wasaccomplished utilizing automated exposure control, adjusting of the mA and kVbased on the patient's body size and/or the use of imperative reconstructivetechniques. 7 Clinical Report - Physicians/Mid Levels [facility] Emergency Department [address] [place] [address] Phone #: ext- [phone] 08/27/2019 15:57 Patient: JOVI ADDISON Sex: F : 1970 Age: 49y Electronically Signed By: Ancelmo Hernandez M.D. , Radiologist Date/Time: 08/27/19 20:20CBC w Diff: (YA: 08/27/2019 17:40) ( MsgRcvd 08/27/2019 17:54) Final results Test Result Flag Units (Reference) CBC W/AUTOMATED DIFF COMPLETE BLOOD COUNT WBC 10.0 10/uL (4.2 - 11.0) RBC 5.09 1 0/uL (4.20 - 5.40) HEMOGLOBIN 12.8 g/dL (12.0 - 16.0) HEMATOCRIT 40.5 % (37.0 - 47.0) MCV 79.6 L fL (81.0 - 101) MCH 25.1 L pg (27.0 - 34.0) MCHC 31.6 g/dL (31.0 - 36.0) RDW 14.8 H % (11.5 - 14.5) PLATELETS 325 10/uL (150 - 450) MPV 10.3 fL (7.4 - 10.4) NEUT 71.2 % (37.0 - 80.0) LYMPH 19.1 L % (25.0 - 40.0) MONO 8.3 H % (3.0 - 8.0) EOS 0.5 % (0.0 - 7.0) BASO 0.6 % (0.0 - 2.5) %IG 0.3 H % (0.0 - 0.0) %NRBC 0.0 % (0.0 - 0.0) #NEUT 7.13 H 10/uL (2.00 - 6.90) #LYMPH 1.91 10/uL (0.60 - 3.40) #MONO 0.83 10/uL (0.00 - 0.90) #EOS 0.05 10/uL (0.00 - 0.70) #BASO 0.06 10/uL (0.00 - 0.20) #IG 0.03 10/uL (0.00 - 0.10) #NRBC 0.00 10/uL (0.00 - 0.00) MANUAL DIFF NOT INDICATED RBC MORPH NOT INDICATEDCMP: (YA: 08/27/2019 17:40) ( MsgRcvd 08/27/2019 19:16) Correction to results Test Result Flag Units (Reference) COMPREHENSIVE METABOLIC PANEL COMPREHENSIVE METABOLIC PANEL SODIUM 138 mEq/L (134 - 153) POTASSIUM 3.9 mEq/L (3.6 - 5.0) CHLORIDE 94 L mEq/L (98 - 107) CO2 24 MEQ/L (22 - 30) GLUCOSE 91 MG/DL (65 - 110) BUN 15 MG/DL (7 - 21) CREATININE 0.6 L MG/DL (0.7 - 1.5) BUN/CREAT 25 (8 - 27) TOTAL PROTEIN 7.6 G/DL (6.3 - 8.2) ALBUMIN 4.8 G/DL (3.9 - 5.0) GLOBULIN 2.8 GM/DL (2.4 - 3.2) A/G RATIO 1.7 (0.8 - 2.0) CALCIUM 10.0 MG/DL (8.4 - 10.2) TOTAL BILI <0.7 MG/DL (0.2 - 1.3) ALKALINE PHOS 91 U/L (38 - 126) SGOT/AST 37 U/L (5 - 40) SGPT/ALT 48 U/L (7 - 56) ANION GAP 20.0 H mmol/L (8.0 - 16.0) AGE 49 yrs NON-AA GFR >60 mL/min AFR AMER GFR >60 mL/min Male GFR Interprentation 20-49 yrs >60 mL/min Adynqd31-96 yrs >56 mL/min Normal 60-69 yrs >49 mL/min Normal 70-79yrs>42 mL/min Normal 80 and above >35 mL/min Normal Female GFR 8 Clinical Report - Physicians/Mid Levels [facility] Emergency Department [address] [place] [address] Phone #: ext- [phone] 08/27/2019 15:57 Patient: JOVI ADDISON Sex: F : 1970 Age: 49y Interpretation 20-39 yrs >60 mL/min Normal 40-49 yrs >58 mL/min Normal 50-59 yrs >51 mL/min Normal 60-69 yrs >45 mL/min Normal 70-79 yrs >39 mL/min Normal 80 and above >32 mL/min Normal Lipase: (YA: 08/27/2019 17:40) ( [facility] [place] 08/27/[place] 18:13) Final results Test Result Flag Units (Reference) LIPASE 22 U/L (13 - 60) Urinalysis: (YA: 08/27/2019 19:54) ( [facility] 08/27/2019 20:21) Final results Test Result Flag Units (Reference) URINALYSIS URINALYSIS SOURCE R COLOR yellow (NORMAL: Yello CLARITY clear (NORMAL: Clear SPEC GRAVITY 1.015 (1.001 - 1.030 pH 5 (5 - 9) GLUCOSE NORM (NORMAL: Negat BILIRUBIN NEG (NORMAL: Negat KETONE 150 A (NORMAL: Negat PROTEIN 30 (NORMAL: Negat NITRITE NEG (NORMAL: Negat BLOOD 50 A (NORMAL: Negat LEUK EST NEG (NORMAL: Negat UROBILINOGEN NOR (less than 1.0 MICROSCOPIC See Below WBC None Seen (NORMAL: NONE RBC 0 - 1 (NORMAL: NONE EPITHELIAL None Seen (NORMAL: NONE BACTERIA None Seen (NORMAL: NONE.PROGRESS AND PROCEDURESCourse of Care: 20:50 08/27/19. workup in as well as CTAP w IV results, all reviewed, possible pyloriculcer vs mass, and maybe gallstones, pt at GB US right now 23:33 08/27/19. GB US result in showing multiple gallstones w top nml GB wall thickness; pt still in pain, RUQ; probable cholecystitis; will call Dr. Romero, surgeon, for admission. Critical care performed (60 minutes). Time is exclusive of separately billable procedures. Time includes: direct patient care, patient reassessment, coordination of patient care, interpretation of data (laboratory data), medical consultation and documentation of patient care- see progress notes. Patient and spouse counseled in person regarding the patient's stable condition, test results, diagnosis and need for admission. Patient and spouse agrees with plan of care. Disposition: Condition: good and stable. Admit decision based on need for IV therapy, hydration, antibiotics and medications, pain control, stabilization of condition and surgery.CLINICAL IMPRESSION Acute cholecystitis with cholelithiasis. No obstruction, choledocholithiasis or pancreatitis. 9 Clinical Report - Physicians/Mid Levels [facility] Emergency Department [address] [place] [address] Phone #: ext- [phone] 08/27/2019 15:57 Patient: JOVI ADDISON Sex: F : 1970 Age: 49y(Electronically signed by Cory Hodge M.D. 08/28/2019 02:12) Name Value Range Interpretation Code Description Data Rachel rce(s) Supporting Document(s) ID Date Data Source [id number] 08/30/2019 10:07:00 [place] [address] PHONE: [phone] FAX: [phone] Name .................. : CYN Keller Acct Number.................. : [id number] ROOM. ................. : 100-1 MR Number ................... : [id number] Stay type ............. : O/P Discharge Date......... ... : Admit Date ......... : 08/27/19 Admit Phys .................... : MAGDALENO Date of ....... : 1970 Family Phys ................... : NO PCP Phone .................. : [phone] Age ................................ : 49 Film# .................. .:[id number] Sex ................................. : F Unsigned transcriptions are preliminary reports and do not represent a medical or legal document GI UPPER WITH KUB [id number] COMPLETE:08/29/19 14:58 [place] [id number] (REASON FOR ABDOMEN: PYLORIC STENOSIS SINGLE CO NTRAST GI SERIES: COMPARISON: Previous CT scan from 08/27/19. INDICATION: Pyloric stenosis. FINDINGS: KUB demonstrates a large amount of material in the patient's stomach. The visualized bowel gas pattern is nonspecific. The osseous structures how mild degenerative changes. Following administration of gas crystals and barium, the esophageal mucosa appears unremarkable. No evidence of a stricture formation is identified. There is no gastroesophageal reflux, however a small to moderate hiatal hernia is noted. The stomach is grossly distended with food material. There is marked irregularity of the pyloric region with suspected underlying ulceration. The pyloric channel is markedly narrowed with a transverse diameter measuring approximately 1-2 mm. The proximal duodenum does appear prominent and may be mildly dilated. Repeat examination to ensure resolution of these findings is recommended. IMPRESSION: The stomach is grossly distended with persistent food material despite the patient's last meal being greater than 12 hours ago. There is marked irregularity of the pyloric region of the stomach and underlying ulceration is suspected. The pyloric channel is markedly narrowed, measuring approximately 1-2 mm in transverse diameter. Small to moderate hiatal hernia. Follow up to ensure resolution of these findings is recommended. 32 images were obtained and 1 minute 6 seconds of fluoroscopy was utilized. Page 1 of [address] [place] [address] PHONE: [phone] FAX: [phone] Name .................. : CYN Keller Acct Number.................. : [id number] ROOM. ................. : 100-1 MR Number ................... : [id number] Stay type ............. : O/P Discharge Date......... ... : Admit Date ......... : 08/27/19 Admit Phys .................... : MAGDALENO Date of ....... : 1970 Family Phys ................... : NO PCP Phone .................. : [phone] Age ................................ : 49 Film# .................. .:[id number] Sex ................................. : F Unsigned transcriptions are preliminary reports and do not represent a medical or legal document GI UPPER WITH KUB [id number] COMPLETE:08/29/19 14:58 SRG [id number] (REASON FOR ABDOMEN: PYLORIC STENOSIS Findings were discussed with Dr. Romero at the time of the completion of the examination. Examination dictated by HONORIO Bateman. Examination was reviewed with Logan Evans MD, radiologist at the time of this dictation. Electronically Reviewed and Signed By Logan Evans MD , 08/30/19 10:07, MRA Transcribe Initials: DZ , Transcribe Date: 08/29/19 16:03, Dictation Date: Copy for: EMERGENCY DEPT via modem Copy for: 710 MED REC Page 2 of 2 Name Value Range Interpretation Code Description Data Rachel rce(s) Supporting Document(s) ID Date Data Source [id number] 08/27/2019 10:54:[address] [facility] [address] [place] [address] ---------NAME--------- NUMBER SEX AGE ADMIT DISC. XRAY# F/C TYPE CYN ESPANA A [id number] F 49 08/27/19 [id number] X6B E/R DATE OF : 1970 M/R# [id number] #: [id number] VT-14 LOCATION: EMERGENCY DEPT TRANSCRIBED: 08/27/19 22:54 IF US GALLBLADDER [id number] COMPLETED:08/27/19 22:04 ADB 27688 Reason(s): Nausea w Vomiting RUQ Pain PHYSICIAN: AYESHA JESUS C R A D I O L O G Y R E P O R T ========US RUQ (Gallbladder)History:US GALLBLADDER, RUQ PAIN, WITH VOMITING AND WEIGHT LOSS (Hx)Technique:US GALLBLADDERComparison:No comparison study available.Findings:Normal liver.Pancreas is suboptimally imaged.Wall echo shadow gallbladder complex.Gallbladder wall measures 3mmCommon biliary duct measures 2.9 mmNormal right kidney. No renal mass or hydronephrosis or calculi.Aorta in the visualized portions are grossly normal.IVC is patent.IMPRESSIONS:Multiple gallstones obscuring posterior wall. Top normal gallbladder wallthickness.Electronically Signed By:Ancelmo Hernandez M.D. , RadiologistDate/Time: 08/27/19 22:54 Name Value Range Interpretation Code Description Data Rachel rce(s) Supporting Document(s) ID Date Data Source [id number] 08/27/2019 08:20:[address] [address] ---------NAME--------- NUMBER SEX AGE ADMIT DISC. XRAY# F/C TYPE CYN Keller [id number] F 49 08/27/19487268 X6B E/R DATE OF : 1970 M/R# [id number] #: [id number] VT-14 LOCATION: EMERGENCY DEPT TRANSCRIBED: 08/27/19 20:[address] ABD //T// PELVIS W/ IV ONLY [id number] COMPLETED:08/27/19 18:28 [facility] [id number] Reason(s): epigastric, ruq pain x 1 month w 15 lbs wt loss PHYSICIAN: AYESHA DARRELL == R A D I O L O G Y R E P O R T PATIENT HISTORY:SAGITTAL (DICOM Hx)CT Abdomen/PelvisHistory:Epigastric, ruq pain x 1 month with 15 lb weight loss (Hx) / SAGITTAL (DICOM Hx)Technique:CT ABD //T// PELVIS W/ IV ONLYDose length product (mGy-cm): Not providedReformations: NoneContrast: With; Isovue 370 75 ml [id number] Exp 06/03Comparison:No comparison study provided.Findings:Moderate fluid distended stomach mild thickening of the pylorus. Advisecorrelation with symptoms and endoscopy if warranted to evaluate for possiblegastroparesis, gastritis/ulcer, mass or other etiologies.The appendix is partially visualized and visualized portions appear normal.Appendix tip not visualized and cannot be commented on.image 37 series 22.The large and small bowel loops appear normal.There is no evidence for bowel obstruction, inflammation or pneumatosis.There is a left sided 1.3 cm ovarian cyst. Consider ultrasound follow-up ifwarranted.Normal uterus and nonvisualized right ovary.Minimal free fluid in pelvis.Heterogeneous appearance of the fundus of the gallbladder likely representsgallstones less likely mass. Advise ultrasound follow-up.There are normal appearing liver, pancreas and bilateral adrenal glands.Normal spleen.Normal kidneysPartially decompressed bladder noted which limits evaluation. No distinctbladder stone identified.7 mm left renal cyst.Normal right kidney and bladder.IMPRESSIONS:Moderate fluid distended stomach mild thickening of the pylorus. Advisecorrelation with symptoms and endoscopy if warranted to evaluate for possiblegastroparesis, gastritis/ulcer, mass or other etiologies.Heterogeneous appearance of the fundus of the gallbladder likely representsgallstones less likely mass. Advise ultrasound follow-up.Normal left renal cyst.There is a left sided 1.3 cm ovarian cyst. Consider ultrasound follow-up ifwarranted.Nonvisualized right ovary.Minimal free fluid in pelvis.While performing the above CT examination, radiation dose reduction wasaccomplished utilizing automated exposure control, adjusting of the mA and kVbased on the patient's body size and/or the use of imperative reconstructivetechniques.Electronically Signed By:Ancelmo Hernandez M.D. , RadiologistDate/Time: 08/27/19 20:20 Name Value Range Interpretation Code Description Data Rachel rce(s) Supporting Document(s) ID Date Data Source [id number] 08/27/2019 08:21:00 PM [facility] Name Value Range Interpretation Code Description Data Rachel rce(s) Supporting Document(s) [facility] yellow NORMAL: Yellow [facility] CLARITY clear NORMAL: Clear [facility] Specific gravity of Urine by Test strip 1.015 1.001 - 1.030 [facility] pH 5 5 - 9 [facility] Glucose [Mass/volume] in Urine by Test strip NORM NORMAL: Negat [facility] Bilirubin.total [Presence] in Urine by Test strip NEG NORMAL: Negative [facility] Ketones [Presence] in Urine by Test strip 150 NORMAL: Negative [facility] Protein [Mass/volume] in Urine by Test strip 30 NORMAL: Negat [facility] Nitrite [Presence] in Urine by Test strip NEG NORMAL: Negative [facility] BLOOD 50 NORMAL: Negative [facility] Leukocyte esterase [Presence] in Urine by Test strip NEG IRASEMA L: Negative [facility] Urobilinogen [Mass/volume] in Urine by Test strip NOR less hi n 1.0 mg/dL [facility] MICROSCOPIC See Below [facility] ital WBC None Seen NORMAL: NONE SEEN [facility] Erythrocytes [#/volume] in Urine by Test strip 0 - 1 NORMAL: NON E SEEN [facility] EPITHELIAL None Seen NORMAL: NONE SEEN [facility] Bacteria [Presence] in Urine sediment by Light microscopy No ne Seen NORMAL: NONE SEEN [facility] ID Date Data Source [id number] 08/27/2019 07:16:00 PM EST [facility] Name Value Range Interpretation Code Description Data Rachel rce(s) Supporting Document(s) COMPREHENSIVE METABOLIC PANEL [facility] COMPREHENSIVE METABOLIC PANEL Sodium [Moles/volume] in Serum or Plasma 138 mEq/L 134 - 153 [facility] Potassium [Moles/volume] in Serum or Plasma 3.9 mEq/L 3.6 - 5.0 [facility] Chloride [Moles/volume] in Serum or Plasma 94 mEq/L 98 - 107 L [facility] Carbon dioxide, total [Moles/volume] in Serum or Plasma 24 MEQ/L 22 - 30 [facility] Glucose [Mass/volume] in Serum or Plasma 91 MG/DL 65 - 110 [facility] BUN 15 MG/DL 7 - 21 [facility] Creatinine [Mass/volume] in Serum or Plasma 0.6 MG/DL 0.7 - 1.5 L [facility] BUN/CREAT 25 8 - 27 [facility] Protein [Mass/volume] in Serum or Plasma 7.6 G/DL 6.3 - 8.2 [facility] Albumin [Mass/volume] in Serum or Plasma 4.8 G/DL 3.9 - 5.0 [facility] Globulin [Mass/volume] in Serum by calculation 2.8 GM/DL 2.4 - 3.2 [facility] A/G RATIO 1.7 0.8 - 2.0 [facility] Calcium [Mass/volume] in Serum or Plasma 10.0 MG/DL 8.4 - 10.2 [facility] Bilirubin.total [Mass/volume] in Serum or Plasma <0.7 MG/DL 0.2 - 1.3 [facility] Alkaline phosphatase [Enzymatic activity/volume] in Serum or Plasma 91 U/L 38 - 126 [facility] Aspartate aminotransferase [Enzymatic activity/volume] in Serum or Plasma 37 U/L 5 - 40 [facility] Alanine aminotransferase [Enzymatic activity/volume] in Seru m or Plasma 48 U/L 7 - 56 [facility] Anion gap 3 in Serum or Plasma 20.0 mmol/L 8.0 - 16.0 H [facility] AGE 49 yrs [facility] NON-AA GFR >60 mL/min [facility] ital AFR AMER GFR >60 mL/min [facility] Male GFR In terprentation 20-49 yrs >60 mL/min Normal 50-59 yrs >56 mL/min Normal 60-69 yrs >49 mL/min Normal 70-79yrs >42 mL/min Normal 80 and above >35 mL/min Normal Female GFR Interpretation 20-39 yrs >60 mL/min Normal 40-49 yrs >58 mL/min Normal 50-59 yrs >51 mL/min Normal 60-69 yrs >45 mL/min Normal 70-79 yrs >39 mL/min Normal 80 and above >32 mL/min Normal ID Date Data Source [id number] 08/27/2019 06:26:00 PM [facility] Name Value Range Interpretation Code Description Data Rachel rce(s) Supporting Document(s) Thyrotropin [Units/volume] in Serum or Plasma by Detec tion limit <= 0.05 mIU/L 0.91 uIU/mL 0.47 - 5.01 [facility] ID Date Data Source [id number] 08/27/2019 06:13:00 PM [facility] Name Value Range Interpretation Code Description Data Rachel rce(s) Supporting Document(s) Lipase [Enzymatic activity/volume] in Serum or Plasma 22 U/L 13 - 60 [facility] ID Date Data Source [id number] 08/27/2019 05:53:00 PM [facility] Value Range Interpretation Code Description Data Rachel rce(s) Supporting Document(s) CBC W/AUTOMATED DIFF [facility] COMPLETE BLOOD COUNT Leukocytes [#/volume] in Blood by Automated count 10.0 10^3/uL 4.2 - 11.0 [facility] Erythrocytes [#/volume] in Blood by Automated count 5.09 10^6/uL 4. 20 - 5.40 [facility] Hemoglobin [Mass/volume] in Blood 12.8 g/dL 12.0 - 16.0 [facility] Hematocrit [Volume Fraction] of Blood by Automated count 40.5 % 3 7.0 - 47.0 [facility] Erythrocyte mean corpuscular volume [Entitic volume] by Auto mated count 79.6 fL 81.0 - 101 L [facility] Erythrocyte mean corpuscular hemoglobin [Entitic mass] by Automated count 25.1 pg 27.0 - 34.0 L [facility] Erythrocyte mean corpuscular hemoglobin concentration [Mass/volume] by Automated count 31.6 g/dL 31.0 - 36.0 [facility] Erythrocyte distribution width [Ratio] by Automated count 14.8 % 11.5 - 14.5 H [facility] Platelets [#/volume] in Blood by Automated count 325 10^3/uL 150 - 45 0 [facility] Platelet mean volume [Entitic volume] in Blood by Automated count 10.3 fL 7.4 - 10.4 [facility] Neutrophils/100 leukocytes in Blood by Automated count 71.2 % 37. 0 - 80.0 [facility] Lymphocytes/100 leukocytes in Blood by Manual count 19.1 % 25.0 - 40.0 L [facility] Monocytes/100 leukocytes in Blood by Automated count 8.3 % 3.0 - 8.0 H [facility] Eosinophils/100 leukocytes in Blood by Automated count 0.5 % 0.0 - 7.0 [facility] Basophils/100 leukocytes in Blood by Automated count 0.6 % 0.0 - 2.5 [facility] %IG 0.3 % 0.0 - 0.0 [facility] %NRBC 0.0 % 0.0 - 0.0 [facility] Neutrophils [#/volume] in Blood by Automated count 7.13 10^3/uL 2.00 - 6.90 H [facility] Lymphocytes [#/volume] in Blood by Automated count 1.91 10^3/uL 0.60 - 3.40 [facility] Monocytes [#/volume] in Blood by Automated count 0.83 10^3/uL 0.00 - 0.90 [facility] Eosinophils [#/volume] in Blood by Automated count 0.05 10^3/uL 0.00 - 0.70 [facility] Basophils [#/volume] in Blood by Automated count 0.06 10^3/uL 0.00 - 0.20 [facility] #IG 0.03 10^3/uL 0.00 - 0.10 [facility]ital #NRBC 0.00 10^3/uL 0.00 - 0.00 [facility] MANUAL DIFF NOT INDICATED [facility] RBC MORPH NOT INDICATED [facility] Procedure Vital Signs ID Date Data Source UNK Name Value Range Interpretation Code Description Data Source(s) Body surface area 1.68 m2 1.68 m2 [facility] ([facility]) Body mass index (BMI) [Ratio] 21.3 kg/m2 21.3 k g/m2 [facility] ([facility]) Body height 66 [in_i] 66 [in_i] [facility] ([facility]) 5'6" pt states Body weight 59.875 kg 59.875 kg [facility] ([facility]) Body weight 132.00 [lb_av] 132.00 [lb_av] [facility] ([facility]) Oxygen saturation in Arterial blood by Pulse oximetry 100 % 100 % [facility] ([facility]) Respiratory rate 14 /min 14 /min [facility] ( [facility]) Body temperature 99.1 [degF] 99.1 [degF] [facility] ([facility]) Heart rate 72 /min 72 /min [facility] ([facility]) Diastolic blood pressure 90 mm[Hg] 90 mm[Hg] [facility] ([facility]) Systolic blood pressure 150 mm[Hg] 150 mm[Hg] [facility] Body surface area 1.62 m2 1.62 m2 [facility] ([facility]) Body mass index (BMI) [Ratio] 19.7 kg/m2 19.7 k g/m2 [facility] ([facility]) Body height 66 [in_i] 66 [in_i] [facility] ([facility]) 5'6" pt states Body weight 55.339 kg 55.339 kg [facility] ([facility]) Body weight 122.00 [lb_av] 122.00 [lb_av] [facility] ([facility]) Oxygen saturation in Arterial blood by Pulse oximetry 100 % 100 % [facility] ([facility]) Respiratory rate 16 /min 16 /min [facility] ( [facility]) Body temperature 98.9 [degF] 98.9 [degF] [facility] ([facility]) Heart rate 72 /min 72 /min [facility] ([facility]) Diastolic blood pressure 95 mm[Hg] 95 mm[Hg] [facility] ([facility]) Systolic blood pressure 154 mm[Hg] 154 mm[Hg] M [facility] ([facility]) ID Date Data Source [id number] 09/11/2019 01:39:16 PM EST [facility] Name Value Range Interpretation Code Description Data Source(s) WEIGHT RECORDED 127.60 pounds 127.60 pounds [facility] Height 66 Inches 066 Inches [facility]
[2020-10-24] MEDS ORDERED: DOXY100C37 PO (11:42)
[2020-10-24] MEDS ORDERED: BOOSTRIX/ADACEL VACCINE (DIPHTH/PERTUSS/ACELL/TETANUS) 0.5ML SYR IM ONE (11:45)
--- OUTSIDE RECORDS SUMMARY | 2020-10-24 12:01 | CCD ---
Author Author [facility] Organization [facility] Address Unknown Phone Unavailable Care Team Providers Care Lard Refiner Name Role Phone José Miguel ROMERO MD [...] M María PA-C Unavailable Unavailable Frank, M Maíra PA-C Unavailable Unavailable Frnak, M María PA-C Unavailable Unavailable Frank, M [...] is protected by Article 27-F of the [facility] Public Health law. If you continue you may have access to information: Regarding HIV / AIDS; Provided by facilities licensed or operated by the [facility] Office of Mental Health; or Provided by the [facility] Office for People With Developmental Disabilities. If such information is present, then the following [facility] mandated warning applies: This information has been [...] law may result in a fine or halfway sentence or both. A general authorization for the release of medical or other information is NOT sufficient authorization for further disc losure. Allergies and Adverse Reactions Type Description Substance Reaction Status Data Source(s ) BRANDNAME PENICILLIN PENICILLIN [facility] Food allergy SOY SOY [facility] [facility] Encounters Encounter Providers Location Date Indications Data Source(s ) Outpatient Attender: SALAZAR MERINOonsultant: María troncoso PA-C 03/05/2020 11:35:44 AM EDT - 03/06/2020 08:34:00 AM EDT [facility] Patient discharged. Outpatient Attender: SALAZAR MERINOonsultant: PCP NO 03/03/2020 01:27:18 PM EDT - 03/08/2020 08:00:00 AM EDT [facility] l Patient discharged. Outpatient Attender: SALAZAR MERINOonsultant: PCP NO 11/15/2019 09:03:00 AM EST - 11/15/2019 09:03:00 AM [facility] l Outpatient Attender: SALAZAR MERINOonsultant: PCP NO 09/11/2019 01:39:00 PM EST - 09/11/2019 01:39:00 PM [facility] l Outpatient Attender: SALAZAR ROMERO MDAttender: GENTRY HODGEConsultant: PCP NO 08/27/2019 04:11:00 PM EST - 08/30/2019 12:45:00 PM [facility] Patient discharged. Medications Medication Brand [...] type / Coverage type Policy ID Covered libertarian ID Covered libertarian's relationship to cronin Policy Cronin Plan Information UN COMMUNITY PLAN [facility] [id number] SP [id number] SELF PAY ONLY [id number] SP [id number] UN COMMUNITY PLAN XIX [id number] 18 [id number] MEDICAID -O/P [id number] MEDICAID [facility] [id number] 18 A [id number] [facility] COMMUNTY PLAN [id number] 18 [id number] UN COMMUNITY PLAN MCDO [id number] SP [id number] HMO BLUE [id number] SP [id number] [employer] BCBS P [id number] S [id number] [employer] P [id number] S [id number] Problems, Conditions, and Diagnoses Code Display Name Description Problem Type Effective Dates Data Source(s) R99 Ill-defined and unknown cause of mortali ty Ill-defined and unknown cause of mortality Diagnosis 03/08/2020 08:00:00 AM [facility] K8020 Calculus of gallbladder without cholecys titis without obstruction Calculus of gallbladder without cholecystitis without obstruction Diagnosis 11/15/2019 09:03:00 AM [facility] K257 Chronic gastric ulcer without hemorrhage or perforation Chronic gastric ulcer without hemorrhage or perforation Diagnosis 11/15/2019 09:03:00 AM [facility] K3189 Other diseases of stomach and duodenum O ther diseases of stomach and duodenum Diagnosis 09/11/2019 01:39:00 PM [facility] K2950 Unspecified chronic gastritis without bl eeding Unspecified chronic gastritis without bleeding Diagnosis 08/27/2019 04:11:00 PM [facility] A048 Other specified bacterial intestinal inf ections Other specified bacterial intestinal infections Diagnosis 08/27/2019 04:11:00 PM [facility] E46 Unspecified protein-calorie malnutrition Unspecified protein-calorie malnutrition Diagnosis 08/27/2019 04:11:00 PM [facility] T06828 Nicotine dependence, cigarettes, uncompl icated Nicotine dependence, cigarettes, uncomplicated Diagnosis 08/27/2019 04:11:00 PM [facility] 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 Adult hypert rophic pyloric stenosis Diagnosis 08/27/2019 04:11:00 PM [facility] K279 Peptic ulcer, site unspecifi ed, unspecified as acute or chronic, without hemorrhage or perforation Peptic ulcer, site unspecified, unspecif ied as acute or chronic, without hemorrhage or perforation Diagnosis 08/27/20 04:11:00 PM [facility] Results ID Date Data Source [id number] 08/27/2019 04:11:00 PM [facility] 1 OrderSheet [facility] Emergency Department [address] [place] [address] Phone #: ext- [phone] 08/27/2019 15:57 Patient: [...] 08/27/2019 Ack'd: 19:10 20:29 Omi Vergara) Cory Hodge Jennifer R.N. M.D.; Maris EnglandTSH STAT 17:46 [...] w Vomiting, RUQ PainMEDICATION/IV/DRIP/FLUID ORDERS 2 OrderSheet [facility] Emergency Department [address] [place] [address] Phone #: ext- [phone] 08/27/2019 15:57 Patient: JOVI ADDISON Sex: F : 1970 Age: 49yOrder Description Priority Entered Acknowledged InitialedNS IV 1000 mL 17:38 08/27/2019 18:02 DorisBolus: : Bolus 1000 Cory Hodge RNmL (X1) Emerald;Zofran 4 mg IVP X 1 17:38 08/27/2019 18:00 Dorisdose: 4 mg (NOW Cory Hodge RNx1) Emerald;Zantac IVPB 50 mg 17:38 08/27/2019 18:0 3 Doriswith Dextrose Cory Hodge RNIntravenous 50 mL M.DEstuardo;(D5W)Zofran 4 mg IVP X 1 22:24 08/27/2019 Ack'd: 22:44 22:50 Jai,dose: 4 mg (NOW Cory Hodge Jennifer R.N.x1) Emerald; Maris R.NEstuardocefOXitin 23:52 08/27/2019 Ack'd: 23:57 00:29 08/28/2019(2gm/100mL) IVPB Cory Hodge McCormick,2000 mg with Emerald; Maris Pollock R.N.DextroseIntravenous 100 mL(D5W) Reason for ordering with alerts: Benefits outweigh risks -- 23:52 08/27/2019 Cory Hodge M.D.LR IV : 150 mL/hr 23:55 08/27/2019 Ack'd: 23:57 01:49 08/28/2019 Cory Hodge McCormick, M.D.; Maris Pololck R.N.HYDROmorphone 23:55 08/27/2019 Ack'd: 23:57 00:28 08/28/2019IVP 1 mg (HIGH Cory Hodge McCormick,ALERT Emerald; Maris RAshley Pollock RAshleyMEDICATION)HYDROmorphone 01:54 08/28/2019 Ack'd: 01:54 01:55 Vergara,IVP 1 mg (HIGH Maris Vergara, Maris EnglandALERT R.NEstuardo; Verbal order Maris EnglandMEDICATION) per; Cory Hodge M.D.GENERAL ORDERSOrder Description Priority Entered Acknowledged InitialedNPO 17:38 08/27/2019 18:03 Cory Colon RN, M.D.;Saline Lock 17:38 08/27/2019 18:03 Madhuri 3 OrderSheet [facility] Emergency Department [address] [place] [address] Phone #: ext- [phone] 08/27/2019 15:57 Patient: JOVI ADDISON Sex: F : 1970 Age: 49y Cory Hodge RN, M.D.;Consult - General 23:55 08/27/2019 Ack'd: 23:57 23:57 Jai,Cory Goyal Jennifer R.N. M.D.; Maris England[Electronically signed by Maris Vergara R.N. (02: 019)][Electronically signed by Cory Hodge M.D. (02:12 08/28/2019)][Electronically locked by Maris Vergara R.N. (02:08/28/2019)] Name Value Range Interpretation Code Description Data Rachel rce(s) Supporting Document(s) ID Date Data Source [id number] 08/27/2019 04:11:00 PM EST [facility] 1 Medication Reconciliation Report [facility] Emergency Department [address] [place] [address] Phone #: ext- [phone] 08/27/2019 15:57 Patient: [...] rce(s) Supporting Document(s) ID Date Data Source [id number] 08/27/2019 04:11:00 PM EST [facility] 1 Medication Administration Record [facility] Emergency Department [address] [place] [address] Phone #: ext- [phone] 08/27/2019 15:57 Patient: JOVI ADDISON Sex: F : 1970 Age: 49yWeight: 53.0 kgHeight/Length: 66 inBMI: 18.9ALLERGIES: Soy, Penicillins Date/Time Medication Administered Medication OrderedStart IV NS W/ BOLUS NS IV 1000 mL Bolus: : Bolus 799999:54 08/27/2019 Dose: IV Fluids mL (X1)Madhuri Caballero RN Rate: 1000 mL/hr over 1 hour(s)---- Bolus: 1000 mL over 1 hour(s)Stop Dispensed: 1000 mL bag19:15 08/27/2019 Site: [facility] cityMaris Vergara R.N.Given ZOFRAN [IVP] (ONDANSETRON HCL) Zofran 4 mg IVP X 1 dose: 4 mg17:53 08/27/2019 Dose: 4 mg IVP (NOW x1)Madhuri Caballero RN Site: #1 left forearmStart ZANTAC [IVPB] (RANITIDINE HCL IN Zantac IVPB 50 mg with Rohpqsia80:55 08/27/2019 NACL) Intravenous 50 mL (D5W)Madhuri Caballero RN Dose: 50 mg IVPB---- Rate: 100 mL/hr over 30 minute(s)Stop Dispensed: 50 mL bag18:25 08/27/2019 Site: #1 left fo rearmDoris OSEAS CaballeroGiven ZOFRAN [IVP] (ONDANSETRON HCL) Zofran 4 mg IVP X 1 dose: 4 mg22:45 08/27/2019 Dose: 4 mg IVP (NOW x1)Maris Vergara R.N. Site: #1 left forearmStart CEFOXITIN (2GM/100ML) [IVPB] cefOXitin (2gm/100mL) IVPB 902787:08 08/28/2019 (CEFOXITIN SODIUM) mg with Dextrose Intravenous 100McMaris Gonzalez R.N. Dose: 2 gm IVPB mL (D5W)---- Rate: 100 mL/hrStop Dispensed: 100 mL bag01:48 08/28/2019 Site: #1 left forearmMaris Gonzalez R.N.Start LR [IV] LR IV : 150 mL/hr01:49 08/28/2019 Dose: IV FluidsMaris Gonzalez R.N. Rate: 150 mL/hr---- Dispensed: 1000 mL bagContinued Upon Admission Site: #1 left crbyuhv54:07 08/28/2019 Maris Gonzalez R.N.Given HYDROMORPHONE [IVP] HYDROmorphone IVP 1 mg (HIGH00:05 08/28/2019 Dose: 1 mg IVP ALERT MEDICATION)Maris Vergara R.N. Site: #1 left forearmGiven HYDROMORPHONE [IVP] HYDROmorphone IVP 1 mg (HIGH01:51 08/28/2019 Dose: 1 mg IVP ALERT MEDICATION)Maris Vergara R.N. Site: #1 left forearm Name Value Range Interpretation Code Description Data Rachel rce(s) Supporting Document(s) ID Date Data Source [id number] 08/27/2019 04:11:00 PM [facility] 1 General Instructions [facility] Emergency Department [address] [place] [address] Phone #: [phone] ext- [phone] 08/27/2019 15:57 Patient: JOVI ADDISON Sex: F : 1970 Age: 49yAcute cholecystitis with cholelithiasis. No obstruction, choledocholithiasis or pancreatitis.(Electronically signed by Cory Hodge M.D. 08/28/2019 02:12) Name Value Range Interpretation Code Description Data Rachel rce(s) Supporting Document(s) ID Date Data Source [id number] 08/27/2019 04:11:00 PM [facility] 1 Clinical Report - Nurses [facility] Emergency Department [address] [place] [address] Phone #: ext- [phone] 08/27/2019 15:57 Patient: JOVI ADDISON Sex: F [...] having abd pain and vomiting. [facility]twent to [facility] last night but left AMA due to overcrowding.). The patient has had nausea and abdominalpain. The pain is described as located in the epigastrium and central area of the abdomen. The patienthas had vomiting (twice today).Treatment MERCURY WASHER:None.SEPSIS SCREEN: NEGATIVE. Negative (no infection suspected/documented). (16:05 [...] Brewer R.N. 2 Clinical Report - Nurses [facility] Emergency Department [address] [place] [address] Phone #: ext- [phone] 08/27/2019 15:57 Patient: [...] treatment room. --17:31 08/27/19 Maris Brewer R.N.PHYSICAL FVRHSJCVMG82:42 08/27/19. Ambulatory to room.GENERAL / NEURO / PSYCH: Alert. Oriented X 4. Appears in no acute distress.HEENT: Mucous membranes are pink.RESPIRATORY: Respirations not labored.GI / : Abdomen soft. Abdominal tenderness in the upper abdomen. Bowel sounds within normallimits.SKIN: Skin is warm and dry. --19:08/27/19 Madhuri Caballero RN. 3 Clinical Report - Nurses [facility] Emergency Department [address] [place] [address] Phone #: ext- [phone] 08/27/2019 15:57 Patient: JOVI ADDISON Sex: F : 1970 Age: 49yNURSING PROGRESS NOTESThe patient is calm and resting quietly. --17:18 08/27/19 Maris Brewer R.N. 17:42 08/27/19. Two patient identifiers checked. Bed placed in lowest position. Brakes of bed on. Patient ready for evaluation- ED physician notified. --19:08/27/19 Madhuri Caballero RN 17:53 08/27/2019 Site #1 [...] Caballero RN 18:28 08/27/19. Patient transported to [place] by wheelchair with respiratory therapy technician. --19:22 08/27/19 Madhuri Caballero RN 18:37 08/27/19. Patient returned from CT by wheelchair with respiratory therapy technician. --19:22 08/27/19 4 Clinical Report - Nurses [facility] Emergency Department [address] [place] [address] Phone #: ext- [phone] 08/27/2019 15:57 [id number] Sex: F : 1970 Age: 49yDoris OSEAS Caballero19:15 08/27/19. Care transferred and report given (Maris Vergara RN). --19:24 08/27/19 OSEAS Hussein19:27 08/27/19. BP: 142/81. MAP: 101. HR: 55. RR: 18. O2 saturation: 98% on room air. Temp: 97.3 F(oral). Pain level now: 04/21. --19:27 08/27/19 Maris Vergara R.N.20:29 08/27/19. Patient transported to [facility] by wheelchair with tech. --20:29 08/27/19 Maris Vergara R.N.21:15 08/27/19. Patient returned from [facility] by wheelchair with tech. --21:16 08/27/19 Maris [...] reaction and 5 Clinical Report - Nurses [facility] Emergency Department [address] [place] [address] Phone #: ext- [phone] 08/27/2019 15:57 Patient: JOVI ADDISON Sex: F [...] level now: 04/21. --01:59 08/28/19 Maris Vergara R.N. 01:45 08/28/19. GI / : The patient [...] and sedative warning. Verbalizes understanding. --01:55 08/28/19 Maris Vergara R.N. 02:07 08/28/2019 Site #[address] upon admission; patent, no pain and no signs of infection or infiltration. --02:08 08/28/19 Maris Vergara R.N. 02:07 08/28/2019 IV Fluids LR via IV site #1 [...] Vergara R.N. 6 Clinical Report - Nurses [facility] Emergency Department [address] [place] [address] Phone #: ext- [phone] 08/27/2019 15:57 Patient: JOVI ADDISON Sex: F [...] rce(s) Supporting Document(s) ID Date Data Source [id number] 08/27/2019 04:11:00 PM [facility] 1 Clinical Report - Physicians/Mid Levels [facility] Emergency Department [address] [place] [address] Phone #: ext- [phone] 08/27/2019 15:57 Patient: [id number] Sex: F : 1970 Age: 49y Time [...] and 2 Clinical Report - Physicians/Mid Levels [facility] Emergency Department [address] [place] [address] Phone #: ext- [phone] 08/27/2019 15:57 Patient: [...] CT ABD PELVIS W/ IV ONLY INSTITUTION: [facility] ORDERING PHYSICIAN: Cory Hodge PATIENT HISTORY: Epigastric, ruq pain x 1 month with 15 lb weight loss (Hx) / SAGITTAL (DICOM Hx) CT Abdomen/Pelvis History: Epigastric, ruq pain x 1 month with 15 lb weight loss (Hx) / SAGITTAL (DICOM Hx) Technique: CT ABD PELVIS W/ IV ONLY Dose length product (mGy-cm): Not provided 3 Clinical Report - Physicians/Mid Levels [facility] Emergency Department [address] [place] [address] Phone #: ext- [phone] 08/27/2019 15:57 Patient: JOVI ADDISON Sex: F : 1970 Age: 49yReformations: NoneContrast: With; Isovue 370 75 ml [id number] Exp 06/03Comparison:No comparison study provided.Findings:Moderate fluid distended [...] 27, 2019 8:20:48 PM EST by:Landon Blum, [place] [employer]. Abdominal CT performed with IV contrast. The study wasinterpreted by the radiologist. 4 Clinical Report - Physicians/Mid Levels [facility] Emergency Department [address] [place] [address] Phone #: ext- [phone] 08/27/2019 15:57 Patient: JOVI ADDISON Sex: F : 1970 Age: 49yAbdominal Sonogram: (REPORT SUBMISSION DATE: Aug 27, 2019 10:54:23 PM ESTNAME: JOVI ADDISON STUDY INITIATED:Aug 27, 2019 8:30:47 PM ESTMRN: [id number] STUDY RECEIVED:Aug 27, 2019 9:09:48 PM ESTGENDER: F MODALITY TYPE:US\\SRDOB: [birth year] DESCRIPTION: US GALLBLADDERINSTITUTION: [facility] ORDERING PHYSICIAN: Cory MoION #: [id number] HISTORY:US RUQ (Gallbladder)History:US GALLBLADDER, RUQ PAIN, WITH [...] 27, 2019 10:54:23 PM EST by:Landon Blum, [place] [employer]). Study included the gallbladder. The study was interpreted bythe radiologist. 5 Clinical Report - Physicians/Mid Levels [facility] Emergency Department [address] [place] [address] Phone #: ext- [phone] 08/27/2019 15:57 Patient: JOVI ADDISON Sex: F : 1970 Age: 49yLaboratory Tests: Laboratory tests have been ordered, with results reviewed and considered in themedical decision making process.US Gall Bladder: (YA: 08/27/2019 18:52) ( MsgRcvd 08/27/2019 22:55) Final results [place] [address] ---------NAME--------- NUMBER SEX AGE ADMIT DISC. XRAY# F/C TYPE CYN Keller [id number] F 49 08/27/19 382122 X6B E/R DATE OF : 1970 M/R# [id number] #: [id number] VT-14 LOCATION: EMERGENCY DEPT TRANSCRIBED: 08/27/19 22:54 IF US GALLBLADDER [id number] COMPLETED:08/27/19 22:04 ADB 95038 Reason(s): Nausea w Vomiting RUQ Pain PHYSICIAN: AYESHA RAMÍREZ R A D I O L O [...] normal gallbladder wall thickness. Electronically Signed By: Ancelmo Hernandez M.D. , Radiologist Date/Time: 08/27/19 22:54TSH: (YA: 08/27/2019 17:40) ( MsgRcvd 08/27/2019 18:26) Final results Test Result Flag Units (Reference) TSH 0.91 uIU/mL (0.47 - 5.01)CT Abd PEL W/ IV Contrast Only: (YA: 08/27/2019 17:39) ( MsgRcvd 08/27/2019 20:21) Finalresults Exam CT ABD //T// PELVIS W/ [place] [address] ---------NAME--------- NUMBER SEX AGE ADMIT DISC. XRAY# F/C TYPE CYN Keller [id number] F 49 08/27/19 403123 X6B E/R 6 Clinical Report - Physicians/Mid Levels [facility] Emergency Department [address] [place] [address] Phone #: ext- [phone] 08/27/2019 15:57 Patient: JOVI ADDISON Sex: F : 1970 Age: 49y DATE OF : 1970 M/R# [id number] #: [id number] VT-14 LOCATION: EMERGENCY DEPT TRANSCRIBED: 08/27/19 20:[address] ABD //T// PELVIS W/ IV ONLY [id number] COMPLETED:08/27/19 18:28 KAH 62653 Reason(s): epigastric, ruq pain x 1 month [...] providedReformations: NoneContrast: With; Isovue 370 75 ml [id number] Exp 06/03Comparison:No comparison study provided.Findings:Moderate fluid distended [...] reconstructivetechniques. 7 Clinical Report - Physicians/Mid Levels [facility] Emergency Department [address] [place] [address] Phone #: ext- [phone] 08/27/2019 15:57 Patient: [...] Male GFR Interprentation 20-49 yrs >60 mL/min Vzmjps22-06 yrs >56 mL/min Normal 60-69 yrs >49 mL/min Normal 70-79yrs>42 mL/min Normal 80 and above >35 mL/min Normal Female GFR 8 Clinical Report - Physicians/Mid Levels [facility] Emergency Department [address] [place] [address] Phone #: ext- [phone] 08/27/2019 15:57 Patient: JOVI ADDISON Sex: F : 1970 Age: 49y Interpretation 20-39 yrs >60 mL/min Normal 40-49 yrs >58 mL/min Normal 50-59 yrs >51 mL/min Normal 60-69 yrs >45 mL/min Normal 70-79 yrs >39 mL/min Normal 80 and above >32 mL/min Normal Lipase: (YA: 08/27/2019 17:40) ( [facility] 08/27[facility] 18[facility]13) Final results Test Result Flag Units (Reference) LIPASE 22 U/L (13 - 60) Urinalysis: (YA: 08/27/2019 19:54) ( [facility] 08/27/2019 20:21) Final results Test Result Flag [...] pancreatitis. 9 Clinical Report - Physicians/Mid Levels [facility] Emergency Department [address] [place] [address] Phone #: ext- [phone] 08/27/2019 15:57 Patient: JOVI ADDISON Sex: F : 1970 Age: 49y(Electronically signed by Cory Hodge M.D. 08/28/2019 02:12) Name Value Range Interpretation Code Description Data Rachel rce(s) Supporting Document(s) ID Date Data Source [id number] 08/30/2019 10:07:00 [place] [address] PHONE: [phone] FAX: [phone] Name .................. : CYN Keller Acct Number.................. : [id number] ROOM. ................. : 100-1 MR Number ................... : [id number] Stay type ............. : O/P Discharge Date......... ... : Admit Date ......... : 08/27/19 Admit Phys .................... : MAGDALENO Date of ....... : 1970 Family Phys ................... : NO PCP Phone .................. : [phone] Age ................................ : 49 Film# .................. .:[id number] Sex ................................. : F Unsigned transcriptions are preliminary reports and do not represent a medical or legal document GI UPPER WITH KUB 17221 COMPLETE:08/29/19 14:58 SRG 99812 (REASON FOR ABDOMEN: PYLORIC STENOSIS SINGLE CO [...] fluoroscopy was utilized. Page 1 of 2 [facility] [address] [place] [address] [place] [address] PHONE: [phone] FAX: [phone] Name .................. : CYN Keller Acct Number.................. : [id number] ROOM. ................. : [facility] MR Number ................... : [id number] Stay type ............. : O/P Discharge Date......... ... : Admit Date ......... : 08/27/19 Admit Phys .................... : MAGDALENO Date of ....... : 1970 Family Phys ................... : NO PCP Phone .................. : [phone] Age ................................ : 49 Film# .................. .:[id number] Sex ................................. : F Unsigned transcriptions are preliminary reports and do not represent a medical or legal document GI UPPER WITH KUB 19016 COMPLETE:08/29/19 14:58 SRG 30459 (REASON FOR ABDOMEN: PYLORIC STENOSIS Findings were [...] rce(s) Supporting Document(s) ID Date Data Source [id number] 08/27/2019 10:54:00 [place] [address] ---------NAME--------- NUMBER SEX AGE ADMIT DISC. XRAY# F/C TYPE CYN Keller [id number] F 49 08/27/19 [id number] X6B E/R DATE OF : 1970 M/R# [id number] #: [id number] VT-14 LOCATION: EMERGENCY DEPT TRANSCRIBED: 08/27/19 22:54 IF US GALLBLADDER [id number] COMPLETED:08/27/19 22:04 ADB 64629 Reason(s): Nausea w Vomiting RUQ Pain PHYSICIAN: [...] rce(s) Supporting Document(s) ID Date Data Source [id number] 08/27/2019 08:20:00 PM [facility] [address] [place] [address] ---------NAME--------- NUMBER SEX AGE ADMIT DISC. XRAY# F/C TYPE CYN Keller [id number] F 49 08/27/19 [id number] X6B E/R DATE OF : 1970 M/R# [id number] #: [id number] VT-14 LOCATION: EMERGENCY DEPT TRANSCRIBED: 08/27/19 20:[address] ABD //T// PELVIS W/ IV ONLY [id number] COMPLETED:08/27/19 18:28 KAH 87951 Reason(s): epigastric, ruq pain x 1 month [...] providedReformations: NoneContrast: With; Isovue 370 75 ml [id number] Exp 06/03Comparison:No comparison study provided.Findings:Moderate fluid distended [...] rce(s) Supporting Document(s) ID Date Data Source [id number] 08/27/2019 08:21:00 PM EST [facility] Name Value Range Interpretation Code Description Data Rachel rce(s) Supporting Document(s) [facility] URINALYSIS SOURCE R [facility] al COLOR yellow NORMAL: Yellow [facility] CLARITY clear NORMAL: Clear [facility] Specific gravity of Urine by Test strip 1.015 1.001 - 1.030 [facility] pH 5 5 - 9 [facility] al Glucose [Mass/volume] in Urine by Test strip NORM NORMAL: Negat [facility] Bilirubin.total [Presence] in Urine by Test strip NEG NORMAL: Negative [facility] Ketones [Presence] in Urine by Test strip 150 NORMAL: Negative [facility] Protein [Mass/volume] in Urine by Test strip 30 NORMAL: Negat [facility] Nitrite [Presence] in Urine by Test strip NEG NORMAL: Negative [facility] BLOOD 50 NORMAL: Negative [facility] Leukocyte esterase [Presence] in Urine by Test strip NEG IRASEMA L: Negative [facility] Urobilinogen [Mass/volume] in Urine by Test strip NOR less hi n 1.0 mg/dL [facility] MICROSCOPIC See Below [facility] ital WBC None Seen NORMAL: NONE SEEN [facility] Erythrocytes [#/volume] in Urine by Test strip 0 - 1 NORMAL: NON E SEEN [facility] EPITHELIAL None Seen NORMAL: NONE SEEN [facility] Bacteria [Presence] in Urine sediment by Light microscopy No ne Seen NORMAL: NONE SEEN [facility] ID Date Data Source [id number] 08/27/2019 07:16:00 PM EST [facility] Name Value Range Interpretation Code Description Data Rachel rce(s) Supporting Document(s) COMPREHENSIVE METABOLIC PANEL [facility] COMPREHENSIVE METABOLIC PANEL Sodium [Moles/volume] in Serum or Plasma 138 mEq/L 134 - 153 [facility] Potassium [Moles/volume] in Serum or Plasma 3.9 mEq/L 3.6 - 5.0 [facility] Chloride [Moles/volume] in Serum or Plasma 94 mEq/L 98 - 107 L [facility] Carbon dioxide, total [Moles/volume] in Serum or Plasma 24 MEQ/L 22 - 30 [facility] Glucose [Mass/volume] in Serum or Plasma 91 MG/DL 65 - 110 [facility] BUN 15 MG/DL 7 - 21 [facility] Creatinine [Mass/volume] in Serum or Plasma 0.6 MG/DL 0.7 - 1.5 L [facility] BUN/CREAT 25 8 - 27 [facility] Protein [Mass/volume] in Serum or Plasma 7.6 G/DL 6.3 - 8.2 [facility] Albumin [Mass/volume] in Serum or Plasma 4.8 G/DL 3.9 - 5.0 [facility] Globulin [Mass/volume] in Serum by calculation 2.8 GM/DL 2.4 - 3.2 [facility] A/G RATIO 1.7 0.8 - 2.0 [facility] Calcium [Mass/volume] in Serum or Plasma 10.0 MG/DL 8.4 - 10.2 [facility] Bilirubin.total [Mass/volume] in Serum or Plasma <0.7 MG/DL 0.2 - 1.3 [facility] Alkaline phosphatase [Enzymatic activity/volume] in Serum or Plasma 91 U/L 38 - 126 [facility] Aspartate aminotransferase [Enzymatic activity/volume] in Serum or Plasma 37 U/L 5 - 40 [facility] Alanine aminotransferase [Enzymatic activity/volume] in Seru m or Plasma 48 U/L 7 - 56 [facility] Anion gap 3 in Serum or Plasma 20.0 mmol/L 8.0 - 16.0 H [facility] AGE 49 yrs [facility] NON-AA GFR >60 mL/min [facility] AFR AMER GFR >60 mL/min [facility] Male GFR In terprentation 20-49 [...] >32 mL/min Normal ID Date Data Source [id number] 08/27/2019 06:26:[address] [facility] Value Range Interpretation Code Description Data Rachel rce(s) Supporting Document(s) Thyrotropin [Units/volume] in Serum or Plasma by Detec tion limit <= 0.05 mIU/L 0.91 uIU/mL 0.47 - 5.01 [facility] ID Date Data Source [id number] 08/27/2019 06:13:00 PM [facility] Name Value Range Interpretation Code Description Data Rachel rce(s) Supporting Document(s) Lipase [Enzymatic activity/volume] in Serum or Plasma 22 U/L 13 - 60 [facility] ID Date Data Source [id number] 08/27/2019 05:53:[address] [facility] Value Range Interpretation Code Description Data Rachel rce(s) Supporting Document(s) CBC W/AUTOMATED DIFF [facility] COMPLETE BLOOD COUNT Leukocytes [#/volume] in Blood by Automated count 10.0 10^3/uL 4.2 - 11.0 [facility] Erythrocytes [#/volume] in Blood by Automated count 5.09 10^6/uL 4. 20 - 5.40 [facility] Hemoglobin [Mass/volume] in Blood 12.8 g/dL 12.0 - 16.0 [facility] Hematocrit [Volume Fraction] of Blood by Automated count 40.5 % 3 7.0 - 47.0 [facility] Erythrocyte mean corpuscular volume [Entitic volume] by Auto mated count 79.6 fL 81.0 - 101 L [facility] Erythrocyte mean corpuscular hemoglobin [Entitic mass] by Automated count 25.1 pg 27.0 - 34.0 L [facility] Erythrocyte mean corpuscular hemoglobin concentration [Mass/volume] by Automated count 31.6 g/dL 31.0 - 36.0 [facility] Erythrocyte distribution width [Ratio] by Automated count 14.8 % 11.5 - 14.5 H [facility] Platelets [#/volume] in Blood by Automated count 325 10^3/uL 150 - 45 0 [facility] Platelet mean volume [Entitic volume] in Blood by Automated count 10.3 fL 7.4 - 10.4 [facility] Neutrophils/100 leukocytes in Blood by Automated count 71.2 % 37. 0 - 80.0 [facility] Lymphocytes/100 leukocytes in Blood by Manual count 19.1 % 25.0 - 40.0 L [facility] Monocytes/100 leukocytes in Blood by Automated count 8.3 % 3.0 - 8.0 H [facility] Eosinophils/100 leukocytes in Blood by Automated count 0.5 % 0.0 - 7.0 [facility] Basophils/100 leukocytes in Blood by Automated count 0.6 % 0.0 - 2.5 [facility] %IG 0.3 % 0.0 - 0.0 [facility] %NRBC 0.0 % 0.0 - 0.0 [facility] al Neutrophils [#/volume] in Blood by Automated count 7.13 10^3/uL 2.00 - 6.90 H [facility] Lymphocytes [#/volume] in Blood by Automated count 1.91 10^3/uL 0.60 - 3.40 [facility] Monocytes [#/volume] in Blood by Automated count 0.83 10^3/uL 0.00 - 0.90 [facility] Eosinophils [#/volume] in Blood by Automated count 0.05 10^3/uL 0.00 - 0.70 [facility] Basophils [#/volume] in Blood by Automated count 0.06 10^3/uL 0.00 - 0.20 [facility] #IG 0.03 10^3/uL 0.00 - 0.10 [facility] #NRBC 0.00 10^3/uL 0.00 - 0.00 [facility] MANUAL DIFF NOT INDICATED [facility] RBC MORPH NOT INDICATED [facility] Procedure Vital Signs ID Date Data Source UNK Name Value Range Interpretation Code Description Data Source(s) Body surface area 1.68 m2 1.68 m2 [facility] ([facility]) Body mass index (BMI) [Ratio] 21.3 kg/m2 21.3 k g/m2 [facility] ([facility]) Body height 66 [in_i] 66 [in_i] [facility] ([facility]) 5'6" pt states Body weight 59.875 kg 59.875 kg [facility] ([facility]) Body weight 132.00 [lb_av] 132.00 [lb_av] [facility] ([facility]) Oxygen saturation in Arterial blood by Pulse oximetry 100 % 100 % [facility] ([facility]) Respiratory rate 14 /min 14 /min [facility] ( [facility]) Body temperature 99.1 [degF] 99.1 [degF] [facility] ([facility]) Heart rate 72 /min 72 /min [facility] ([facility]) Diastolic blood pressure 90 mm[Hg] 90 mm[Hg] [facility] ([facility]) Systolic blood pressure 150 mm[Hg] 150 mm[Hg] [facility] ([facility]) Body surface area 1.62 m2 1.62 m2 [facility] ([facility]) Body mass index (BMI) [Ratio] 19.7 kg/m2 19.7 k g/m2 [facility] ([facility]) Body height 66 [in_i] 66 [in_i] [facility] ([facility]) 5'6" pt states Body weight 55.339 kg 55.339 kg [facility] ([facility]) Body weight 122.00 [lb_av] 122.00 [lb_av] [facility] ([facility]) Oxygen saturation in Arterial blood by Pulse oximetry 100 % 100 % [facility] ([facility] Respiratory rate 16 /min 16 /min [facility] ( [facility]) Body temperature 98.9 [degF] 98.9 [degF] [facility] ([facility]) Heart rate 72 /min 72 /min [facility] ([facility]) Diastolic blood pressure 95 mm[Hg] 95 mm[Hg] [facility] ([facility]) Systolic blood pressure 154 mm[Hg] 154 mm[Hg] [facility] ([facility]) ID Date Data Source [id number] 09/11/2019 01:39:16 PM EST [facility] Name Value Range Interpretation Code Description Data Source(s) WEIGHT RECORDED 127.60 pounds 127.60 pounds [facility] Height 66 Inches 066 Inches [facility]
== END 2020-10-24 12:01 | disposition home or self-care (01) ==
LOC: M ED 11:10
DX: S61.402A Unspecified open wound of left hand, initial encounter (principal); W54.0XXA Bitten by dog, initial encounter; Y92.018 Other place in single-family (private) house as the place of occurrence of the external cause; Z88.0 Allergy status to penicillin